=== PATIENT | female | born 1960 | race Caucasian/White ===

== ENCOUNTER → 2019-08-20 13:35 | Outpatient (BNVA) | payer BC, SELFPAY | PROVIDERS: Family Provider Nurse Practitioner; PCP Nurse Practitioner; Visit Provider Nurse Practitioner | DX: M25.562 Pain in left knee (principal) | CPT/HCPCS: 73562 ==

== ENCOUNTER → 2019-09-22 11:56 | Outpatient (BNVA) | payer BC, SELFPAY | PROVIDERS: Family Provider Nurse Practitioner; PCP Nurse Practitioner; Visit Provider Nurse Practitioner | DX: I10 Essential (primary) hypertension (principal); F41.9 Anxiety disorder, unspecified; E03.9 Hypothyroidism, unspecified | CPT/HCPCS: 81003 ==

== ENCOUNTER → 2019-09-23 08:58 | Outpatient (BNVA) | payer BC, SELFPAY | PROVIDERS: Family Provider Nurse Practitioner; PCP Nurse Practitioner; Visit Provider Nurse Practitioner | DX: I10 Essential (primary) hypertension (principal); F41.9 Anxiety disorder, unspecified; E03.9 Hypothyroidism, unspecified | CPT/HCPCS: 80053; 80061; 84443; 85025 ==

== ENCOUNTER → 2019-11-06 08:41 | Outpatient (BNVA) | payer BC, SELFPAY | PROVIDERS: Family Provider Nurse Practitioner; PCP Nurse Practitioner; Visit Provider Nurse Practitioner | DX: R73.9 Hyperglycemia, unspecified (principal) | CPT/HCPCS: 83036 ==

== ENCOUNTER → 2019-11-28 10:37 | Outpatient (BNVA) | payer BC, SELFPAY | PROVIDERS: Family Provider Nurse Practitioner; PCP Nurse Practitioner; Visit Provider Nurse Practitioner | DX: N39.0 Urinary tract infection, site not specified (principal) | CPT/HCPCS: 81000 ==

== ENCOUNTER → 2019-12-29 15:54 | Outpatient (BNVA) | payer BC, SELFPAY | PROVIDERS: Family Provider Nurse Practitioner; PCP Nurse Practitioner; Visit Provider Nurse Practitioner | DX: Z11.59 Encounter for screening for other viral diseases (principal) | CPT/HCPCS: 87635 ==

== ENCOUNTER → 2020-01-18 14:27 | Outpatient (BNVA) | payer BC, SELFPAY | PROVIDERS: Family Provider Nurse Practitioner; PCP Nurse Practitioner; Visit Provider Nurse Practitioner | DX: E03.8 Other specified hypothyroidism (principal); K27.9 Peptic ulcer, site unspecified, unspecified as acute or chronic, without hemorrhage or perforation; I10 Essential (primary) hypertension; F41.9 Anxiety disorder, unspecified | CPT/HCPCS: 80053; 82150; 83690; 84443; 85025 ==

== ENCOUNTER → 2020-04-25 15:06 | Outpatient (BNVA) | payer OTHER, SELFPAY | PROVIDERS: Family Provider Nurse Practitioner; PCP Nurse Practitioner; Visit Provider Nurse Practitioner | DX: E03.8 Other specified hypothyroidism (principal); E55.9 Vitamin D deficiency, unspecified; I10 Essential (primary) hypertension; F41.9 Anxiety disorder, unspecified | CPT/HCPCS: 80053; 82306; 84443; 85025 ==

== ENCOUNTER → 2020-06-23 14:26 | Outpatient (BNVA) | payer OTHER, SELFPAY | PROVIDERS: Family Provider Nurse Practitioner; PCP Nurse Practitioner; Visit Provider Nurse Practitioner Family | DX: R11.2 Nausea with vomiting, unspecified (principal); R19.7 Diarrhea, unspecified | CPT/HCPCS: 74018; 80053; 85025 ==

== ENCOUNTER → 2020-07-28 08:16 | Outpatient (BNVA) | payer OTHER, SELFPAY | PROVIDERS: Family Provider Nurse Practitioner; PCP Nurse Practitioner; Visit Provider Surgery | DX: K62.5 Hemorrhage of anus and rectum (principal); R10.13 Epigastric pain; Z20.822 Contact with and (suspected) exposure to COVID-19 | CPT/HCPCS: 87635 ==

== ENCOUNTER 2020-08-03 07:52 | Day surgery (SDC) | payer OTHER, SELFPAY ==
[2020-08-01 10:19] VITALS: BMI 29.5
[2020-08-03 08:21] VITALS: BP 101/85; PULSE 72; RESP 18; TEMP 36.4; O2SAT 98
--- NOTE | 2020-08-03 08:50 | W.PM.OPSUD ---
Surgery/Procedure H&P Update DATE OF PROCEDURE: August 03, 2020 DATE H&P PERFORMED: 07/04/20 H&P UPDATE INFORMATION: I have reviewed H&P completed within last 30 days, I have examined patient prior to procedure and No changes to prior documentation PREOP DIAGNOSIS: Epigastric pain and bleeding per rectum PRIMARY INDICATION FOR PROCEDURE: The same PLANNED PROCEDURE: Operation Date: 08/03/20 09:30 Proposed Procedures p EGD [id number] k62.5 k27.9 r10.13(Not Applicable) - Alfred Dc MD s Colonoscopy(Not Applicable) - Alfred Dc MD
--- NOTE | 2020-08-03 09:04 | ANES.PREANE2 ---
Pre-Anesthetic Assessment Pre-Anesthetic Assessment: Height/Weight: Height 1.68 m Weight 83.007 kg Temp Pulse Resp BP Pulse Ox 97.5 F L 72 18 101/85 98 08/03/20 08:21 08/03/20 08:21 08/03/20 08:21 08/03/20 08:21 08/03/20 08:21 Preop Diagnosis: Epigastric pain and bleeding per rectum Proposed Procedure: Operation Date: 08/03/20 09:30 Proposed Procedures p EGD [id number] k62.5 k27.9 r10.13(Not Applicable) - Alfred cD MD s Colonoscopy(Not Applicable) - Alfred Dc MD Familial anesthetic complications: none Was Clonidine taken within 24 hours: Yes Last intake: Intake Last Liquid Date 08/02/20 Last Liquid Time 23:30 Last Solid Date 08/01/20 Last Solid Time 18:00 Social: Social History: No alcohol and No tobacco Exam: Pre-Anes Outpt Exam: alert, oriented x 3, clear to auscultation bilaterally and regular rate & rhythm Airway: Submandibular: WNL Cervical ROM: WNL MP: 2 Dentition: Full Pulmonary: Pulmonary: Sleep apnea Comments: bronchitis CV/HEM: CV/HEM: HTN : : None reported Hepatic: Hepatic: None reported GI: GI: GERD (controlled) Metabolic: Metabolic: Thyroid Musc/skel: Musc/skel: None reported Neuropsych: Neuropsych: Anxiety Anesthetic Plan: ASA status: 2 Anesthesia: MAC Risk of > 500 ml blood loss (7ml/kg in children): No PFSH Anesthesia PFSH: Medical History Adult onset hypothyroidism Anxiety and depression Gastritis GERD (gastroesophageal reflux disease) Gingivitis Irritable bowel syndrome with diarrhea Surgical History History of colonoscopy with polypectomy History of hysterectomy History of left knee surgery Left patella alignment Family History Other Diabetes Hypertension Denies family history of Bleeding disorder Social History Smoking and tobacco status: former smoker Second hand smoke exposure: No Smoking risk assessment/counseling performed?: No Alcohol intake: never Desire information about alcohol rehabilitation?: No Counseling given: No Desire information about substance/drug rehabilitation?: No Counseling given: No Adopted: No Caregiver/support person: No Lives independently: Yes Household members: spouse and children Housing: House Marital status: service: No Current occupational status: unemployed History of recent travel: No Current gender identity: Female Data Anesthesia Cardiac Studies: No Data to Display
[2020-08-03] MEDS: sodium chloride 0.9% 1,000 ML 30 ML IV (09:30)
--- NOTE | 2020-08-03 09:40 | ANE.PACU2 ---
Inpatient post-anesthesia follow up: Airway intact: Yes Vital signs: Temperature 97.5 F Pulse Rate 72 Respiratory Rate 18 Blood Pressure 101/85 Pulse Oximetry 98 Oxygen Delivery Me thod Room Air Oxygen Flow Rate Fraction of Inspir ed Oxygen Hydration adequate: Yes Nausea and vomiting: No Pain level: 1 Mental status: Baseline
[2020-08-03 10:00] VITALS: BP 111/69; PULSE 66; RESP 18; O2SAT 97
[2020-08-04 10:34] LABS: H. Pylori / CLO Test Negative
== END 2020-08-03 10:16 | disposition home or self-care (01) ==
PROVIDERS: PCP Nurse Practitioner; Visit Provider Surgery
PROC: 0DJ08ZZ Inspection of Upper Intestinal Tract, Via Natural or Artificial Opening Endoscopic (ICD-10-PCS; CPT 43235; principal; 2020-08-03 09:30)
PROC: 0DJD8ZZ Inspection of Lower Intestinal Tract, Via Natural or Artificial Opening Endoscopic (ICD-10-PCS; CPT 45378; 2020-08-03 09:30)
DX: K62.5 Hemorrhage of anus and rectum (principal); R10.13 Epigastric pain; D12.2 Benign neoplasm of ascending colon; K44.9 Diaphragmatic hernia without obstruction or gangrene; K29.70 Gastritis, unspecified, without bleeding; K29.80 Duodenitis without bleeding; I10 Essential (primary) hypertension; G47.30 Sleep apnea, unspecified; K21.9 Gastro-esophageal reflux disease without esophagitis; F41.9 Anxiety disorder, unspecified; Z82.49 Family history of ischemic heart disease and other diseases of the circulatory system; Z83.3 Family history of diabetes mellitus; Z87.891 Personal history of nicotine dependence
CPT/HCPCS: 43239; 45380; 87077; 88305; 96360; J2704; J7030

== ENCOUNTER → 2020-09-22 15:53 | Outpatient (BNVA) | payer OTHER, SELFPAY | PROVIDERS: PCP Nurse Practitioner; Visit Provider Nurse Practitioner | DX: R07.89 Other chest pain (principal); R53.83 Other fatigue; E55.9 Vitamin D deficiency, unspecified; I10 Essential (primary) hypertension; F41.9 Anxiety disorder, unspecified; M79.18 Myalgia, other site; F32.9 Major depressive disorder, single episode, unspecified; E03.8 Other specified hypothyroidism | CPT/HCPCS: 71046; 82306; 82607; 84443; 85025 ==

== ENCOUNTER → 2020-11-14 11:05 | Outpatient (BNVA) | payer OTHER, SELFPAY | PROVIDERS: PCP Nurse Practitioner; Visit Provider Nurse Practitioner Family | DX: Z20.822 Contact with and (suspected) exposure to COVID-19 (principal) | CPT/HCPCS: 87635 ==

== ENCOUNTER 2020-11-16 10:56 | Outpatient (CLI) | payer OTHER, SELFPAY ==
[2020-11-16 11:25] VITALS: BP 103/68; PULSE 77; RESP 24; TEMP 37.2; O2SAT 95; BMI 28.8
[2020-11-16 11:50] VITALS: BP 120/73; BP 129/77; PULSE 65; PULSE 74; RESP 24; TEMP 37.9; TEMP 38.2; O2SAT 95; O2SAT 96
== END 2020-11-16 10:57 | disposition home or self-care (01) ==
PROVIDERS: PCP Nurse Practitioner; Visit Provider Nurse Practitioner Family
DX: U07.1 COVID-19 (principal)
CPT/HCPCS: 96365

== ENCOUNTER → 2020-12-09 09:13 | Outpatient (BNVA) | payer OTHER, SELFPAY | PROVIDERS: PCP Nurse Practitioner; Visit Provider Nurse Practitioner Family | DX: L21.9 Seborrheic dermatitis, unspecified (principal); B37.2 Candidiasis of skin and nail | CPT/HCPCS: 80053 ==

== ENCOUNTER → 2021-01-24 15:45 | Outpatient (BNVA) | payer OTHER, SELFPAY | PROVIDERS: PCP Nurse Practitioner; Visit Provider Nurse Practitioner | DX: L03.90 Cellulitis, unspecified (principal); N61.0 Mastitis without abscess | CPT/HCPCS: 85025 ==

== ENCOUNTER 2021-02-09 12:26 | Outpatient (CLI) | payer OTHER, SELFPAY ==
--- NOTE | 2021-02-09 13:00 | MM_ITS ---
WS: [id number] BILATERAL DIGITAL DIAGNOSTIC MAMMOGRAM MAMMOGRAPHY WITH CAD CLINICAL INFORMATION: SWELLING/PAIN/REDNESS LT BREAST COMPARISON: TECHNIQUE: Bilateral CC, MLO, and ML views. FINDINGS: Scattered fibroglandular densities bilaterally. Vascular calcification. No suspicious focal mass, asymmetry, calcifications, or architectural distortion. Breast parenchyma i s unchanged since 2017. Ultrasound left breast is pending. ULTRASOUND BREAST LEFT TECHNIQUE: Ultrasound left breast focused area of concern. CLINICAL INFORMATION: SWELLING/PAIN/REDNESS LT BREAST COMPARISON: None. FINDINGS: Ultrasound left breast at the 6:00 and 7:00 position in the area of cellulitis. No evidence of draina ble abscess or fluid collection. Ultrasound left axilla in the area of pain. In the area of pain, there are a few normal-appearing lym ph nodes in the left axilla largest measuring 1.3 x 0.7 x 1.4 cm. No other suspicious abnormality se en in this area. Additional ultrasound at the 1:00 position in the area of concern near the nipple demonstrates a subc utaneous well-circumscribed echogenic lesion measuring 1.1 x 0.6 x 1.0 cm most consistent with incide ntal lipoma. This has a benign appearance. MM/[place] [id number] IMPRESSION: BI-RADS: 2-Benign FOLLOW UP: 1 Year Follow-up Recommend return to annual screening mammography.
--- NOTE | 2021-02-09 13:54 | US_ITS ---
WS: [id number] BILATERAL DIGITAL DIAGNOSTIC MAMMOGRAM MAMMOGRAPHY WITH CAD CLINICAL INFORMATION: SWELLING/PAIN/REDNESS LT BREAST COMPARISON: TECHNIQUE: Bilateral CC, MLO, and ML views. FINDINGS: Scattered fibroglandular densities bilaterally. Vascular calcification. No suspicious focal mass, asymmetry, calcifications, or architectural distortion. Breast parenchyma i s unchanged since 2017. Ultrasound left breast is pending. ULTRASOUND BREAST LEFT TECHNIQUE: Ultrasound left breast focused area of concern. CLINICAL INFORMATION: SWELLING/PAIN/REDNESS LT BREAST COMPARISON: None. FINDINGS: Ultrasound left breast at the 6:00 and 7:00 position in the area of cellulitis. No evidence of draina ble abscess or fluid collection. Ultrasound left axilla in the area of pain. In the area of pain, there are a few normal-appearing lym ph nodes in the left axilla largest measuring 1.3 x 0.7 x 1.4 cm. No other suspicious abnormality se en in this area. Additional ultrasound at the 1:00 position in the area of concern near the nipple demonstrates a subc utaneous well-circumscribed echogenic lesion measuring 1.1 x 0.6 x 1.0 cm most consistent with incide ntal lipoma. This has a benign appearance. US/US breast LT limited* [id number] IMPRESSION: BI-RADS: 2-Benign FOLLOW UP: 1 Year Follow-up Recommend return to annual screening mammography.
== END 2021-02-09 12:27 | disposition home or self-care (01) ==
LOC: RADSHAW 12:30
PROVIDERS: PCP Nurse Practitioner; Visit Provider Nurse Practitioner
DX: M79.89 Other specified soft tissue disorders (principal); N64.4 Mastodynia; L53.9 Erythematous condition, unspecified
CPT/HCPCS: 76642; 77066; 77067

== ENCOUNTER → 2021-05-09 08:57 | Outpatient (BNVA) | payer OTHER, SELFPAY | PROVIDERS: PCP Nurse Practitioner; Visit Provider Nurse Practitioner | DX: E03.8 Other specified hypothyroidism (principal); I10 Essential (primary) hypertension | CPT/HCPCS: 80053; 80061; 84443; 85025 ==

== ENCOUNTER → 2021-07-04 15:09 | Outpatient (BNVA) | payer OTHER, SELFPAY | PROVIDERS: PCP Nurse Practitioner; Visit Provider Nurse Practitioner | DX: R05.9 Cough, unspecified (principal); K44.9 Diaphragmatic hernia without obstruction or gangrene | CPT/HCPCS: 71046; 81000; 85025 ==

== ENCOUNTER 2021-09-08 06:00 | Outpatient (RCR) | payer OTHER, SELFPAY | END 2021-09-21 23:59 | disposition home or self-care (01) | LOC: APT 06:00 | PROVIDERS: PCP Nurse Practitioner; Referring Provider Orthopaedic Surgery; Visit Provider Orthopaedic Surgery | DX: M22.2X2 Patellofemoral disorders, left knee (principal) | CPT/HCPCS: 97110; 97163 ==

== ENCOUNTER 2021-09-22 06:00 | Outpatient (RCR) | payer OTHER, SELFPAY | END 2021-10-22 23:59 | disposition home or self-care (01) | LOC: APT 06:00 | PROVIDERS: PCP Nurse Practitioner; Referring Provider Orthopaedic Surgery; Visit Provider Orthopaedic Surgery | DX: M22.2X2 Patellofemoral disorders, left knee (principal) | CPT/HCPCS: 97110 ==

== ENCOUNTER → 2021-10-24 09:36 | Outpatient (BNVA) | payer OTHER, SELFPAY | PROVIDERS: PCP Nurse Practitioner; Visit Provider Nurse Practitioner | DX: E03.8 Other specified hypothyroidism (principal); I10 Essential (primary) hypertension; E11.65 Type 2 diabetes mellitus with hyperglycemia | CPT/HCPCS: 80053; 80061; 84443; 85025 ==

== ENCOUNTER → 2022-04-05 10:50 | Outpatient (BNVA) | payer OTHER, SELFPAY | PROVIDERS: PCP Nurse Practitioner; Visit Provider Family Medicine | DX: R35.0 Frequency of micturition (principal); R52 Pain, unspecified; N39.0 Urinary tract infection, site not specified | CPT/HCPCS: 87426 ==

== ENCOUNTER → 2022-04-12 10:11 | Outpatient (BNVA) | payer OTHER, SELFPAY | PROVIDERS: PCP Nurse Practitioner; Visit Provider Nurse Practitioner Family | DX: N39.0 Urinary tract infection, site not specified (principal); E03.8 Other specified hypothyroidism; I10 Essential (primary) hypertension; K21.9 Gastro-esophageal reflux disease without esophagitis; K92.0 Hematemesis; K27.9 Peptic ulcer, site unspecified, unspecified as acute or chronic, without hemorrhage or perforation | CPT/HCPCS: 80048; 81000; 84443; 85025; 87086 ==

== ENCOUNTER → 2022-06-26 08:48 | Outpatient (BNVA) | payer OTHER, SELFPAY | PROVIDERS: PCP Nurse Practitioner; Visit Provider Nurse Practitioner | DX: E03.8 Other specified hypothyroidism (principal); E55.9 Vitamin D deficiency, unspecified | CPT/HCPCS: 80053; 80061; 84443 ==

== ENCOUNTER → 2022-07-30 12:55 | Outpatient (BNVA) | payer OTHER, SELFPAY | PROVIDERS: PCP Nurse Practitioner; Visit Provider Nurse Practitioner | DX: E03.8 Other specified hypothyroidism (principal) | CPT/HCPCS: 84443 ==

== ENCOUNTER → 2022-08-16 15:18 | Outpatient (BNVA) | payer OTHER, SELFPAY | PROVIDERS: PCP Nurse Practitioner; Visit Provider Nurse Practitioner Family | DX: R50.9 Fever, unspecified (principal); J22 Unspecified acute lower respiratory infection | CPT/HCPCS: 87426 ==

== ENCOUNTER → 2022-10-08 10:11 | Outpatient (BNVA) | payer OTHER, SELFPAY | PROVIDERS: PCP Nurse Practitioner; Visit Provider Nurse Practitioner Family | DX: B94.8 Sequelae of other specified infectious and parasitic diseases (principal); M79.10 Myalgia, unspecified site; R52 Pain, unspecified | CPT/HCPCS: 80053; 85025; 85651; 86003; 86008; 86140; 86160; 86162; 86235; 86255; 86376; 86431; 86618; 86666; 86757 ==

== ENCOUNTER → 2022-10-26 08:23 | Outpatient (BNVA) | payer OTHER, SELFPAY | PROVIDERS: PCP Nurse Practitioner; Visit Provider Nurse Practitioner | DX: E55.9 Vitamin D deficiency, unspecified (principal); E03.8 Other specified hypothyroidism; R73.9 Hyperglycemia, unspecified; I10 Essential (primary) hypertension | CPT/HCPCS: 82306; 82607; 83036; 84439; 84443; 84481 ==

== ENCOUNTER → 2022-12-08 14:43 | Outpatient (BNVA) | payer OTHER, SELFPAY | PROVIDERS: PCP Nurse Practitioner; Visit Provider Nurse Practitioner Family | DX: N39.0 Urinary tract infection, site not specified (principal) | CPT/HCPCS: 81000 ==

== ENCOUNTER 2023-01-02 18:21 | Emergency (ER) | payer OTHER, SELFPAY ==
[2023-01-02 18:43] VITALS: BP 119/81; PULSE 65; RESP 18; TEMP 36.8; O2SAT 98; BMI 29.0
[2023-01-02 19:35] LABS: Basophils % 0.5 %; Eosinophils # 0.1 10^3/uL (0.0-0.8); Hematocrit 47.5 % (36-47); Lymphocytes # 1.1 10^3/uL (0.8-4.8); Lymphocytes % 15.8 %; Mean Corpuscular HGB Conc 28.6 g/dL (30-55); Mean Corpuscular Hemoglobin 28.2 pg (27-33); Mean Corpuscular Volume 98.3 fl (85-98); Mean Platelet Volume 11.6 fL (7.4-10.4); Monocytes # 0.4 10^3/uL (0.2-0.9); Monocytes % 5.3 %; Neutrophils # 5.05 10^3/uL (1.8-7.7); Neutrophils % 75.6 %; Nucleated Red Blood Cells % 0 %; Platelet Count 204 10^3/cmm (157-399); Red Blood Count 4.83 10^6/uL (3.85-5.65); Red Cell Distribution Width 14.3 % (12.1-15.1); White Blood Count 6.66 10^3/uL (3.29-11.43)
--- NOTE | 2023-01-02 19:41 | ECG_ITS ---
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 Measurements Intervals [place] Rate: 52 P: 30 GA: 156 QRS: -8 QRSD: 94 T: 41 QT: 450 QTc: 419 Interpretive Statements SINUS BRADYCARDIA Compared to ECG 10/18/2017 04:32:54 T-wave abnormality no longer present Electronically Signed On 01-03-2023 21:30:41 CDT by Aileen Colin M.D. [email or web address] [email or web address] medina [email or web address]/store/[id number]
[2023-01-02 19:56] LABS: Troponin(5th) Baseline 7 ng/L (0-10)
[2023-01-02 19:57] LABS: Alanine Aminotransferase 13 U/L (0-33); Albumin Level 4.2 g/dL (3.5-5.2); Alkaline Phosphatase 69 U/L (35-105); Anion Gap 13.4 (5-19); Aspartate Amino Transferase 15 U/L (0-32); Blood Urea Nitrogen 14 mg/dL (8-23); Calcium 8.9 mg/dL (8.5-10.5); Carbon Dioxide 26 mmol/L (22-29); Chloride 102 mmol/L (98-107); Globulin 2.4 g/dL (1.3-4.6); Glucose 109 mg/dL (65-115); Osmolality Calculated 285 mOsm/kg (285-295); Potassium 4.4 mmol/L (3.5-5.1); Sodium 137 mmol/L (136-145); Total Bilirubin 0.5 mg/dL (0.15-1.2); Total Protein 6.6 g/dL (6.6-8.7)
--- NOTE | 2023-01-02 20:28 | CTR_ITS ---
PROCEDURE INFORMATION: Exam: CT Head Without Contrast Exam date and time: 01/02/2023 8:35 PM Age: 62 years old Clinical indication: Other: Pain to right side of head; Patient HX: PT says she was recently dx w/ shingles and has started having headaches on and off accompanied by dizziness, pain is always to right side of head; Additional info: Headache, dizziness TECHNIQUE: Imaging protocol: Computed tomography of the head without contrast. Radiation optimization: All CT scans at this facility use at least one of these dose optimization techniques: automated exposure control; mA and/or kV adjustment per patient size (includes targeted exams where dose is matched to clinical indication); or iterative reconstruction. REPORTING DATA: Count of CT and Cardiac NM exams in prior 12 months: This patient has received 0 known CTs and 0 known cardiac nuclear medicine studies in the 12 months prior to the current study. COMPARISON: No relevant prior studies available. RADIATION DOSE METRICS: Total DLP (mGy-cm): 1016.38 FINDINGS: Brain: Normal. No hemorrhage. Unremarkable white matter. No mass effect. Cerebral ventricles: No ventriculomegaly. Paranasal sinuses: Visualized sinuses are unremarkable. No fluid levels. Mastoid air cells: Visualized mastoid air cells are well aerated. Bones/joints: Unremarkable. No acute fracture. Soft tissues: Unremarkable. CT/CT head wo con* [id number] IMPRESSION: No acute intracranial abnormality.
--- NOTE | 2023-01-02 21:03 | W.ED.DIZZY ---
HPI - Dizziness General: Chief Complaint: Dizziness Stated Complaint: dizzy Time Seen by Provider: 01/02/23 20:21 History of Present Illness: HPI Narrative: 62-year-old female presents with dizziness and headache. She reports that headaches been going on for a while along with the dizziness. She has been seen by urgent care and her primary care provider. She was recently diagnosed with shingles. She reports the dizziness gets worse with head movement. She was told she has a little bit of fluid behind her ear. Associated symptoms: Denies chest pain, chills, nausea, palpitations, tinnitus or vomiting Review of Systems Const: Denies: fever(s) or chills Eyes: Denies: change in vision or blurry vision ENMT: Denies: tinnitus Card: Denies: chest pain, palpitations, irregular heart rhythm or lightheadedness Resp: Denies: dyspnea or productive cough GI: Denies: abdominal pain, nausea or vomiting Neuro: Reports: dizziness [facility] ED PFSH: Medical History (Updated 01/02/23 @ 22:01 by Chad Childs DO) Adult onset hypothyroidism Anxiety and depression Bleeding per rectum Bronchospasm Colon polyp Gastritis Gastritis and duodenitis GERD (gastroesophageal reflux disease) Gingivitis Hiatal hernia Irritable bowel syndrome with diarrhea Neuropathy due to herpes zoster Vitamin D deficiency Surgical History History of appendectomy History of cholecystectomy History of colonoscopy with polypectomy History of hysterectomy History of left knee surgery Left patella alignment History of tubal ligation Family History Other Diabetes Hypertension Denies family history of Bleeding disorder Social History Smoking and tobacco/nicotine status: former use of tobacco/nicotine Second hand smoke exposure: No Alcohol intake: never Substance/Drug Use: never Adopted: No Caregiver/support person: No Lives independently: Yes Household members: spouse and children Housing: House Marital status: service: No Current occupational status: unemployed Do you think of yourself as: Straight/Heterosexual Current gender identity: Female Physical Exam Const: COMMON NORMALS: no acute distress, average body habitus and patient oriented x3 HENMT: COMMON NORMALS: external ears normal EXTERNAL EAR: Yes external ears normal TYMPANIC MEMBRANE: TM abnormal TM laterality: right Details: fluid behind TM (mild) Resp: COMMON NORMALS: normal respiratory effort, No use of accessory muscles and clear to auscultation bilaterally AUSCULTATION: clear to auscultation bilaterally Cardio: COMMON NORMALS: regular rate and regular rhythm RATE: regular rate RHYTHM: regular rhythm Extremity: COMMON NORMALS: full ROM and capillary refill normal Neuro: COMMON NORMALS: patient oriented x3, CN's II-XII intact bilaterally, moves all extremities, no focal motor deficits and no sensory deficits noted Psych: COMMON NORMALS: mental status grossly normal and cooperative Skin: COMMON NORMALS: turgor normal GENERAL SKIN EXAM: turgor normal Course Vital Signs: Vital signs: Vital Signs Temperature 98.3 F 01/02/23 18:43 Pulse Rate 48 L 01/02/23 21:42 Respiratory Rate 21 H 01/02/23 21:42 Blood Pressure 164/54 01/02/23 21:42 Pulse Oximetry 95 01/02/23 21:42 Oxygen Delivery Me thod Room Air 01/02/23 21:42 MDM - Dizziness Medical Decision Making Patient's diagnostic studies were ordered reviewed and interpreted by me. Patient has no significant findings on her labs. Patient's CT head was obtained and reviewed shows no acute findings. Patient had 2 EKGs that showed sinus bradycardia but otherwise normal EKG. Patient does not complain of any dizziness or headache at this time but reports that this comes and goes. Patient's symptoms are consistent with benign positional vertigo versus possible headache due to her shingles diagnosis. She should continue her current medications. I recommend she try meclizine as needed. Patient was stable and discharged home Medical Records I reviewed the patient's medical records. Lab Data I reviewed the patient's lab results. 01/02/23 19:28 01/02/23 19:[address] 01/02/23 20:28 IMPRESSION: No acute intracranial abnormality. Laboratory Results WBC 6.66 10^3/uL (3.29-11.43) 01/02/23 19:28 RBC 4.83 10^6/uL (3.85-5.65) 01/02/23 19:28 Hgb 13.60 g/dL (11.27-16.99) 01/02/23 19: Hct 47.5 % (36-47) H 01/02/23: MCV 98.3 fl (85-98) H 01/02/23 19: MCH 28.2 pg (27-33) 01/02/23 19: MCHC 28.6 g/dL (30-55) L 01/02/23: RDW 14.3 % (12.1-15.1) 01/02/23: Plt Count 204 10^3/cmm (157-399) 01/02/23 19: MPV 11.6 fL (7.4-10.4) H 01/02/23: Neut % (Auto) 75.6 % 01/02/23: Lymph % (Auto) 15.8 % 01/02/23: Millard % (Auto) 5.3 % 01/02/23: Eos % (Auto) 2.0 % 01/02/23: Baso % (Auto) 0.5 % 01/02/23: Neut # (Auto) 5.05 10^3/uL (1.8-7.7) 01/02/23: Lymph # (Auto) 1.1 10^3/uL (0.8-4.8) 01/02/23: Millard # (Auto) 0.4 10^3/uL (0.2-0.9) 01/02/23: Eos # (Auto) 0.1 10^3/uL (0.0-0.8) 01/02/23: Baso # (Auto) 0.0 10^3/uL (0.0-0.1) 01/02/23: Nucleated RBC % (auto) 0 % 01/02/23: Nucleated RBCs # 0.0 /100WBC 01/02/23 19: Sodium 137 mmol/L (136-145) 01/02/23 19: Potassium 4.4 mmol/L (3.5-5.1) 01/02/23 19: Chloride 102 mmol/L (98-107) 01/02/23 19: Carbon Dioxide 26 mmol/L (22-29) 01/02/23 19:28 Anion Gap 13.4 (5-19) 01/02/23 19:28 BUN 14 mg/dL (8-23) 01/02/23 19:28 Creatinine 1.0 mg/dL (0.5-0.9) H 01/02/23 19:28 GFR Calculation 56.0 mL/min (90-130) L 01/02/23 19:28 Glucose 109 mg/dL (65-115) 01/02/23 19:28 Calculated Osmolality 285 mOsm/kg (285-295) 01/02/23 19:28 Calcium 8.9 mg/dL (8.5-10.5) 01/02/23 19:28 Total Bilirubin 0.5 mg/dL (0.15-1.2) 01/02/23 19:28 AST 15 U/L (0-32) 01/02/23 19:28 ALT 13 U/L (0-33) 01/02/23 19:28 Alkaline Phosphatase 69 U/L (35-105) 01/02/23 19:28 Troponin T Baseline 7 ng/L (0-10) 01/02/23 19:28 Total Protein 6.6 g/dL (6.6-8.7) 01/02/23 19:28 Albumin 4.2 g/dL (3.5-5.2) 01/02/23 19:28 Globulin 2.4 g/dL (1.3-4.6) 01/02/23 19:28 All radiology interpretation(s) finalized by discharge Discharge Plan Discharge Patient Disposition: Home Clinical Impression: Benign paroxysmal positional vertigo Condition: Stable Prescriptions: No Action acetaminophen 325 mg capsule 325 mg PO ONCE Qty: 1 0RF melatonin 5 mg capsule 5 mg PO BEDTIME triamcinolone acetonide 0.1 % lotion 1 applic topical BID Qty: 60 0RF Hold Instructions: Doctor's Order calcipotriene [Dovonex] 0.005 % cream 1 applic topical DAILY Qty: 60 0RF Rx Instructions: rub in gently and completely duloxetine [Cymbalta] 60 mg capsule,delayed release(DR/EC) 60 mg PO BID Qty: 60 2RF albuterol sulfate [ProAir HFA] 90 mcg/actuation HFA aerosol inhaler 2 puff inhalation Q6H PRN (Reason: shortness of breath or wheezing) Qty: 8.5 2RF amlodipine [Norvasc] 5 mg tablet 5 mg PO DAILY Qty: 30 2RF budesonide-formoterol [Symbicort] 160-4.5 mcg/actuation HFA aerosol inhaler 2 puff inhalation BID Qty: 10.2 2RF cholecalciferol (vitamin D3) 125 mcg (5,000 unit) capsule 125 mcg PO DAILY Qty: 30 2RF cyanocobalamin (vitamin B-12) 1,000 mcg/mL solution 1,000 mcg IM .one time dose Qty: 1 2RF hydroxyzine pamoate 25 mg capsule 25 mg PO BID PRN (Reason: anxiety) Qty: 60 2RF levothyroxine 50 mcg tablet 50 mcg PO DAILY Qty: 30 2RF lisinopril 40 mg tablet 40 mg PO DAILY Qty: 30 2RF pantoprazole [Protonix] 40 mg tablet,delayed release (DR/EC) 40 mg PO DAILY Qty: 30 2RF diclofenac sodium [Voltaren Arthritis Pain] 1 % gel 2 g topical TID Qty: 100 2RF Rx Instructions: apply to right side clonidine HCl 0.1 mg tablet 0.1 mg PO Q12H Qty: 60 2RF Hold Instructions: Low BP fluticasone propionate [Children's Flonase Allergy Rlf] 50 mcg/actuation spray,suspension 1 spray intranasal BID Qty: 16 0RF Rx Instructions: administer into each nostril nystatin 100,000 unit/gram powder 1 applic topical BID Qty: 30 2RF Discharge Orders: Discharge ED (Routine); Ordered 01/02/23 Ordered By: Chad Childs Referrals: Radha Palomares, [employer] [Primary Care Provider] - Discharge Diet: Usual diet Discharge Activity: Increase activity as tolerated Patient Instructions: Opioid Safety, Pain Management, Benign Paroxysmal Positional Vertigo (ED), Vertigo (ED) Activity Restrictions/Additional Instructions: Please follow-up with your primary care provider as needed. You may use meclizine 25 mg 3 times daily as directed on package. Be sure to drink plenty of fluids. Stand Alone Forms: Work/School Release Coding Level of Care Code ED Software Quality Specialist for Adan Mckeon
--- NOTE | 2023-01-02 21:14 | ECG_ITS ---
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 Measurements Intervals [place] Rate: 49 P: 39 WV: 155 QRS: -4 QRSD: 94 T: 35 QT: 466 QTc: 424 Interpretive Statements SINUS BRADYCARDIA Compared to ECG 01/02/2023 19:41:08 No significant changes Electronically Signed On 01-03-2023 21:37:06 CDT by Aileen Colin M.D. [email or web address] Squaremercy health all[email or web address].[email or web address]/store/[id number]
[2023-01-02] MEDS: meclizine 25 mg tablet PO (21:24)
[2023-01-02] MEDS: sodium chloride 0.9% 1,000 ML 999 ML IV (21:25)
[2023-01-02 21:42] VITALS: BP 164/54; PULSE 48; RESP 21; O2SAT 95
[2023-01-02 21:53] LABS: Add Urine Microscopic? NO; Charge for UA Resulting for Rev
[2023-01-02 22:00] VITALS: BP 173/72; PULSE 50; RESP 22; O2SAT 93
[2023-01-02 22:02] LABS: Bilirubin Urine Neg (Negative); Blood Urine Neg (Negative); Glucose Urine UA Norm (Normal); Ketones Urine Negative (Negative); Leukocyte Esterase Urine Negative (Negative); Nitrate Urine Negative (Negative); Protein Urine Neg (Negative); Urine Appearance Clear (CLEAR); Urine Color Yellow (Yellow); Urobilinogen Urine Norm (Negative); pH Urine 6 (5-7)
[2023-01-02 22:30] VITALS: BP 161/68; PULSE 49; RESP 22; O2SAT 97
== END 2023-01-02 22:41 | disposition home or self-care (01) ==
PROVIDERS: Nurse Practitioner Family; Emergency Provider Student in an Organized Health Care Education/Training Program; PCP Nurse Practitioner
DX: H81.10 Benign paroxysmal vertigo, unspecified ear (principal); Z87.891 Personal history of nicotine dependence
CPT/HCPCS: 36415; 70450; 80053; 81003; 84484; 85025; 93005; 99285; J7030; J8597

== ENCOUNTER → 2023-02-25 09:49 | Outpatient (BNVA) | payer OTHER, SELFPAY | PROVIDERS: PCP Nurse Practitioner; Visit Provider Nurse Practitioner | DX: E53.8 Deficiency of other specified B group vitamins (principal); E55.9 Vitamin D deficiency, unspecified; I10 Essential (primary) hypertension | CPT/HCPCS: 80053; 82306; 82607; 84443 ==

== ENCOUNTER → 2023-03-26 11:03 | Outpatient (BNVA) | payer OTHER, SELFPAY | PROVIDERS: PCP Nurse Practitioner; Visit Provider Nurse Practitioner | DX: R05.9 Cough, unspecified (principal); R50.9 Fever, unspecified; I10 Essential (primary) hypertension | CPT/HCPCS: 80053; 85025; 87400; 87426 ==

== ENCOUNTER 2023-04-02 13:43 | Outpatient (CLI) | payer OTHER, SELFPAY ==
--- NOTE | 2023-04-02 14:00 | MM_ITS ---
WS: [id number] BILATERAL 3D TOMOSYNTHESIS DIGITAL SCREENING MAMMOGRAPHY WITH CAD CLINICAL INFORMATION: Z12.31 - Encounter for screening mammogram for malignant ... HISTORY: Screening mammogram. No current complaints. COMPARISON: 2020 TECHNIQUE: Bilateral CC and MLO views. FINDINGS: Scattered fibroglandular densities bilaterally. Vascular calcification. 8 mm asymmetric density near the 12 o'clock position RIGHT breast more prominent compared to previous breast seen on the MLO view. Recommend RIGHT breast diagnostic mammography and ultrasound if persistent. Unremarkable LEFT breast. IMPRESSION: MM/[place] [id number] BI-RADS: 0-Incomplete: Need additional imaging evaluation FOLLOW UP: Need Additional Imaging Recommend RIGHT breast diagnostic mammography and ultrasound if persistent..
== END 2023-04-02 13:44 | disposition home or self-care (01) ==
LOC: MOBLMAM 13:46
PROVIDERS: PCP Nurse Practitioner; Visit Provider Nurse Practitioner
DX: Z12.31 Encounter for screening mammogram for malignant neoplasm of breast (principal)
CPT/HCPCS: 77063; 77067

== ENCOUNTER 2023-05-09 08:37 | Outpatient (CLI) | payer OTHER, SELFPAY ==
--- NOTE | 2023-05-09 08:46 | MM_ITS ---
WS: [id number] RIGHT 3D TOMOSYNTHESIS DIGITAL MAMMOGRAPHY WITH CAD CLINICAL INFORMATION: R92.8 - Other abnormal and inconclusive findings on diagn... HISTORY: Additional views COMPARISON: 04/02/2023 TECHNIQUE: 3 views of the right breast were obtained. FINDINGS: Scattered fibroglandular densities of the right breast. Again seen is the small asymmetric density ne ar the 12 o'clock position RIGHT breast. Ultrasound is pending. ULTRASOUND BREAST RIGHT TECHNIQUE: Ultrasound right breast focused area of concern. CLINICAL INFORMATION: R92.8 - Other abnormal and inconclusive findings on diagn... FINDINGS: Ultrasound RIGHT breast 12 o'clock position 5 cm from the nipple demonstrates a small cyst or dilated duct measuring approximately 3 mm. This has a benign appearance. Recommend return to annual screenin g mammography. IMPRESSION: MM/[place] [id number] BI-RADS: 2-Benign FOLLOW UP: 1 Year Follow-up Recommend return to annual screening mammography.
== END 2023-05-09 08:38 | disposition home or self-care (01) ==
LOC: RAD 08:38
PROVIDERS: PCP Nurse Practitioner; Visit Provider Nurse Practitioner
DX: R92.8 Other abnormal and inconclusive findings on diagnostic imaging of breast (principal); R92.321 Mammographic fibroglandular density, right breast
CPT/HCPCS: 76642; 77061; G0279

== ENCOUNTER 2023-05-19 00:52 | Inpatient (IN) | payer OTHER, SELFPAY ==
[2023-05-19] VITALS (244 sets, daily range): BP systolic 115–190; BP diastolic 65–127; PULSE 51–85; RESP 12–31; TEMP 36.4–37.1; O2SAT 87–100; BMI 29.0; BMI 30.7
--- NOTE | 2023-05-19 01:03 | ECG_ITS ---
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 Measurements Intervals [place] Rate: 151 P: 0 PA: 0 QRS: 32 QRSD: 82 T: 14 QT: 261 QTc: 414 Interpretive Statements ATRIAL FLUTTER/TACHYCARDIA WITH RAPID VENTRICULAR RESPONSE MARKED ST DEPRESSION, CONSIDER SUBENDOCARDIAL INJURY [0.2+ mV ST DEPRESSION] ACUTE TX Compared to ECG 01/02/2023 21:14:20 ST (T wave) deviation now present Sinus bradycardia no longer present Electronically Signed On 05-19-2023 20:54:48 INSURANCE COUNSEL by Aileen Colin M.D. [id number] f
--- NOTE | 2023-05-19 01:04 | XRR_ITS ---
PROCEDURE INFORMATION: Exam: XR Chest Exam date and time: 05/19/2023 1:34 AM Age: 62 years old Clinical indication: Chest pressure; Patient HX: C/O left sided chest pain; Additional info: Cp TECHNIQUE: Imaging protocol: Radiologic exam of the chest. Views: 1 view. COMPARISON: CR XR chest 2V* [id number] 07/04/2021 3:10 PM FINDINGS: Lungs: No consolidation or pulmonary edema. Pleural spaces: No pleural effusion. No pneumothorax. Heart/Mediastinum: Stable large hiatal hernia. Bones/joints: No acute fractures. XR/XR chest 1V portable [id number] IMPRESSION: 1. No acute findings. 2. Stable large hiatal hernia.
--- NOTE | 2023-05-19 01:04 | CTR_ITS ---
PROCEDURE INFORMATION: Exam: CT Head Without Contrast Exam date and time: 05/19/2023 1:24 AM Age: 62 years old Clinical indication: Stroke-like symptoms; Speech disturbance; Additional info: Symptoms of acute stroke TECHNIQUE: Imaging protocol: Computed tomography of the head without contrast. Radiation optimization: All CT scans at this facility use at least one of these dose optimization techniques: automated exposure control; mA and/or kV adjustment per patient size (includes targeted exams where dose is matched to clinical indication); or iterative reconstruction. Other technique: STROKE PROTOCOL was implemented. COMPARISON: CT head wo con* [id number] 01/02/2023 8:35 PM RADIATION DOSE METRICS: Total DLP (mGy-cm): 1019.48 FINDINGS: Brain: No acute intracranial hemorrhage. No mass effect or midline shift. No acute extraaxial fluid collection. Unremarkable white matter. Cerebral ventricles: No ventriculomegaly. Paranasal sinuses: Partially visualized sinuses are unremarkable. No fluid levels. Mastoid air cells: Visualized mastoid air cells are well aerated. Bones/joints: Unremarkable. No acute calvarial fracture. Soft tissues: Unremarkable. CT/CT head thrombolytic [id number] IMPRESSION: No acute intracranial findings. ASSESSMENT: ASPECTS ([place] Stroke Program Early CT Score) is 10.
--- NOTE | 2023-05-19 01:04 | CTR_ITS ---
PROCEDURE INFORMATION: Exam: CTA Head With Contrast, Arteriography Exam date and time: 05/19/2023 2:42 AM Age: 62 years old Clinical indication: Speech disturbance and weakness; Patient HX: Dysphasia/slurred speech with left upper ext weakness TECHNIQUE: Imaging protocol: Computed tomographic angiography of the head with contrast. Exam focused on the arteries. 3D rendering (Not supervised by radiologist): MIP and/or 3D reconstructed images were created by the technologist. Radiation optimization: All CT scans at this facility use at least one of these dose optimization techniques: automated exposure control; mA and/or kV adjustment per patient size (includes targeted exams where dose is matched to clinical indication); or iterative reconstruction. Contrast material: OMNI 350; Contrast volume: 100 ml; Contrast route: INTRAVENOUS (IV); COMPARISON: CT head thrombolytic [id number] 05/19/2023 1:24 AM RADIATION DOSE METRICS: Total DLP (mGy-cm): 1019.48 FINDINGS: ANTERIOR CIRCULATION: Right internal carotid artery: Intracranial segment is patent with no significant stenosis. No aneurysm. Right middle cerebral artery: No occlusion or significant stenosis. No aneurysm. Right anterior cerebral artery: No occlusion or significant stenosis. No aneurysm. Left internal carotid artery: Intracranial segment is patent with no significant stenosis. No aneurysm. Left middle cerebral artery: No occlusion or significant stenosis. No aneurysm. Left anterior cerebral artery: No occlusion or significant stenosis. No aneurysm. POSTERIOR CIRCULATION: Right vertebral artery: No occlusion or significant stenosis. No aneurysm. Left vertebral artery: No occlusion or significant stenosis. No aneurysm. Basilar artery: No occlusion or significant stenosis. No aneurysm. Right posterior cerebral artery: No occlusion or significant stenosis. No aneurysm. Left posterior cerebral artery: No occlusion or significant stenosis. No aneurysm. Brain: There is no evidence of acute intracranial hemorrhage, subacute or chronic ischemic infarct, acute intra-axial or extra-axial fluid collection, mass effect, or midline shift. Cerebral ventricles: No ventriculomegaly. Bones/joints: Unremarkable. No acute fracture. Soft tissues: Unremarkable. PROCEDURE INFORMATION: Exam: CTA Neck With Contrast Exam date and time: 05/19/2023 2:42 AM Age: 62 years old Clinical indication: Speech disturbance and weakness; Patient HX: Dysphasia/slurred speech with left upper ext weakness TECHNIQUE: Imaging protocol: Computed tomographic angiography of the neck with contrast. Exam focused on the cervical segments of the vasculature. 3D rendering (Not supervised by radiologist): MIP and/or 3D reconstructed images were created by the technologist. Radiation optimization: All CT scans at this facility use at least one of these dose optimization techniques: automated exposure control; mA and/or kV adjustment per patient size (includes targeted exams where dose is matched to clinical indication); or iterative reconstruction. Contrast material: OMNI 350; Contrast volume: 100 ml; Contrast route: INTRAVENOUS (IV); COMPARISON: CT head thrombolytic [id number] 05/19/2023 1:24 AM RADIATION DOSE METRICS: Total DLP (mGy-cm): 1019.48 FINDINGS: Right common carotid artery: No stenosis. No dissection or occlusion. Right internal carotid artery: No stenosis of the extracranial segment. No dissection or occlusion. Right external carotid artery: No occlusion or stenosis of the origin. Left common carotid artery: No stenosis. No dissection or occlusion. Left internal carotid artery: No stenosis of the extracranial segment. No dissection or occlusion. Left external carotid artery: No occlusion or stenosis of the origin. Right vertebral artery: No stenosis. No dissection or occlusion. Left vertebral artery: No stenosis. No dissection or occlusion. Lymph nodes: Bilateral mediastinal lymphadenopathy. Soft tissues: Normal. No significant soft tissue swelling. Bones/joints: No acute fracture. CT/CT angio headneck* [id number] IMPRESSION: 1. No major intracranial artery aneurysm, obstruction or significant stenosis. 2. No acute intracranial findings. IMPRESSION: 1. No major neck artery stenosis, aneurysm, pseudoaneurysm or occlusion. 2. Bilateral mediastinal lymphadenopathy. Further evaluation with chest CT is recommended. REFERENCES: NASCET CRITERIA. The degree of stenosis in the cervical segment of the internal carotid artery is based on NASCET criteria. Normal is no stenosis. Mild is less than 50% stenosis. Moderate is 50-69% stenosis. Severe is 70% to 99% stenosis. Total occlusion is no detectable patent lumen.
[2023-05-19 01:09] LABS: Glucose Point of Care 146 mg/dL (70-110)
[2023-05-19 01:27] LABS: Basophils # 0.1 10^3/uL (0.0-0.1); Basophils % 0.7 %; Eosinophils # 0.7 10^3/uL (0.0-0.8); Eosinophils % 8.6 %; Hematocrit 40.7 % (36-47); Lymphocytes # 1.5 10^3/uL (0.8-4.8); Lymphocytes % 19.3 %; Mean Corpuscular HGB Conc 32.2 g/dL (30-55); Mean Corpuscular Volume 90.2 fl (85-98); Mean Platelet Volume 10.8 fL (7.4-10.4); Monocytes # 0.6 10^3/uL (0.2-0.9); Monocytes % 7.7 %; Neutrophils # 4.81 10^3/uL (1.8-7.7); Neutrophils % 63.3 %; Nucleated Red Blood Cells % 0 %; Platelet Count 250 10^3/cmm (157-399); Red Blood Count 4.51 10^6/uL (3.85-5.65); Red Cell Distribution Width 13.9 % (12.1-15.1); White Blood Count 7.58 10^3/uL (3.29-11.43)
[2023-05-19 01:40] LABS: INR 0.97 (0.8-1.2); Partial Thromboplastin Time 28.4 SECONDS (23.9-36.7)
[2023-05-19 01:45] LABS: Troponin(5th) Baseline 18 ng/L (0-10)
[2023-05-19 01:46] LABS: Alanine Aminotransferase 28 U/L (0-33); Albumin Level 4.1 g/dL (3.5-5.2); Alkaline Phosphatase 63 U/L (35-105); Blood Urea Nitrogen 17 mg/dL (8-23); Calcium 9.4 mg/dL (8.5-10.5); Carbon Dioxide 23 mmol/L (22-29); Chloride 103 mmol/L (98-107); Globulin 2.4 g/dL (1.3-4.6); Glucose 139 mg/dL (65-115); Osmolality Calculated 290 mOsm/kg (285-295); Sodium 138 mmol/L (136-145); Total Bilirubin 0.2 mg/dL (0.15-1.2); Total Protein 6.5 g/dL (6.6-8.7)
[2023-05-19 01:48] LABS: Anion Gap 16.2 (5-19); Aspartate Amino Transferase 30 U/L (0-32); Potassium 4.2 mmol/L (3.5-5.1)
[2023-05-19 01:49] LABS: Add Urine Microscopic? NO; Charge for UA Resulting for Rev
[2023-05-19 01:51] LABS: Bilirubin Urine Neg (Negative); Blood Urine Neg (Negative); Glucose Urine UA Norm (Normal); Ketones Urine Negative (Negative); Leukocyte Esterase Urine Negative (Negative); Nitrate Urine Negative (Negative); Protein Urine Neg (Negative); Urine Appearance Clear (CLEAR); Urine Color Light yellow (Yellow); Urobilinogen Urine Norm (Negative); pH Urine 7 (5-7)
[2023-05-19] MEDS: tenecteplase 50mg Kit (STROKE) 50 MG (02:00)
[2023-05-19 02:01] LABS: Amphetamines Screen Urine Negative (Negative); Barbiturates Screen Urine Negative (Negative); Benzodiazepines Screen Urine Negative (Negative); Cocaine Screen Urine Negative (Negative); Opiate Screen Urine Negative (Negative); PCP Screen Urine Negative (Negative); THC Screen Urine Negative (Negative)
[2023-05-19] MEDS: labetalol 5 mg/mL SDV 20mL 10 MG IVP (02:02)
[2023-05-19] MEDS: iohexol 350 mg/mL 500 mL Btl (per mL) IV (02:53)
--- NOTE | 2023-05-19 03:45 | P.HP_ITS ---
Providers/Chief Complaint 2 Admitting Physician: Timbo Johnson DO Primary Care Provider: SUE Michael-C Chief Complaint: Stroke Symptoms History of Present Illness Cristin Brice is a 62 year old female with history of hypertension hyperlipidemia anxiety and depression disorders, recent herpes zoster, peptic ulcer disease, hypothyroidism presents with sudden onset aphasia and left-sided weakness. Patient reports that she was in bed woke up with a start her heart was pounding she was having pain and she felt like her left side was's twisting internally. She went to arouse her and she could barely walk having to hold herself up and when she spoke she could not say what she wanted to say. Per her he said he could understand her but she was slurring her words and definitely weak on the left side he immediately brought her to the emergency room. She had an NIH of approximately 5-7 CT was negative for bleed and she received thrombolytics. She has shown marked improvement with an NIH of 3 the CTA was negative for further clot burden she will be admitted to the ICU Review of Systems 2 Const: Reports: body aches, daytime sleepiness, snoring and other (Difficulty sleeping, not feeling right ); Denies: fever(s) or chills Eyes: Denies: change in vision ENMT: Denies: throat pain or nasal congestion Card: Denies: chest pain or palpitations Resp: Denies: dyspnea or productive cough GI: Denies: abdominal pain, nausea, vomiting or change in stool character : Denies: dysuria Musc: Reports: joint pain (Left knee status post 2 knee replacements), joint stiffness and muscle cramps; Denies: back pain Skin/Breast: Denies: rash or lesions Neuro: Denies: headache(s) Psych: Reports: anxiety, depression, panic attacks and sleeping less Trey/Lymph: Denies: easy bruising or easy bleeding Medications/Allergies Home Medications Medication Instructions Recorded Confirmed Last Taken Type melatonin 5 mg capsule 5 mg PO BEDTIME 07/13/19 03/26/23 08/02/20 History triamcinolone acetonide 0.1 % 1 applic topical BID #60 mL 04/25/20 03/26/23 Unknown Rx lotion nystatin 100,000 unit/gram topical 1 applic topical BID #30 grams 05/26/21 03/26/23 Unknown Rx powder calcipotriene 0.005 % topical 1 applic topical DAILY #60 grams 07/27/21 03/26/23 Unknown Rx cream (Dovonex) fluticasone propionate 50 1 spray intranasal BID #16 grams 12/21/22 03/26/23 Unknown Rx mcg/actuation nasal spray,suspension (Children's Flonase Allergy Relief) albuterol sulfate 90 mcg/actuation 2 puff inhalation Q6H PRN 03/04/23 03/26/23 Unknown Rx aerosol inhaler (ProAir HFA) shortness of breath or wheezing #8.5 grams amlodipine 5 mg tablet (Norvasc) 5 mg PO DAILY #30 tabs 03/04/23 03/26/23 Unknown Rx budesonide-formoterol HFA 160 2 puff inhalation BID #10.2 grams 03/04/23 03/26/23 Unknown Rx mcg-4.5 mcg/actuation aerosol inhaler (Symbicort) cholecalciferol (vitamin D3) 125 125 mcg PO DAILY #30 caps 03/04/23 03/26/23 Unknown Rx mcg (5,000 unit) capsule clonidine HCl 0.1 mg tablet 0.1 mg PO Q12H #60 tabs 03/04/23 03/26/23 Unknown Rx cyanocobalamin (vitamin B-12) 1,000 mcg IM .one time dose #1 mL 03/04/23 03/26/23 Unknown Rx 1,000 mcg/mL injection solution diclofenac sodium 1 % topical gel 2 g topical TID #100 grams 03/04/23 03/26/23 Unknown Rx (Voltaren Arthritis Pain) duloxetine 30 mg capsule,delayed 30 mg PO BID #60 caps 03/04/23 03/26/23 Unknown Rx release hydrochlorothiazide 12.5 mg tablet 12.5 mg PO QAM #30 tabs 03/04/23 03/26/23 Unknown Rx hydroxyzine pamoate 25 mg capsule 25 mg PO BID PRN anxiety #60 caps 03/04/23 03/26/23 Unknown Rx levothyroxine 50 mcg tablet 50 mcg PO DAILY #30 tabs 03/04/23 03/26/23 Unknown Rx lisinopril 40 mg tablet 40 mg PO DAILY #30 tabs 03/04/23 03/26/23 Unknown Rx promethazine-DM 6.25 mg-15 mg/5 mL 5 ml PO .12 hours cough 7 days 03/26/23 03/26/23 Unknown Rx oral syrup #118 mL Allergies Allergy/AdvReac Type Severity Reaction Status Date / Time sucralfate [From Carafate] Allergy ALGY-Hives Verified 03/26/23 10:53 PFSH Acute 2 PFSH: Medical History Neuropathy due to herpes zoster Bronchospasm Vitamin D deficiency Colon polyp Hiatal hernia Gastritis and duodenitis Bleeding per rectum Adult onset hypothyroidism Anxiety and depression Gastritis GERD (gastroesophageal reflux disease) Gingivitis Irritable bowel syndrome with diarrhea Surgical History History of cholecystectomy History of tubal ligation History of appendectomy History of colonoscopy with polypectomy History of left knee surgery Left patella alignment History of hysterectomy Family History Other Diabetes Hypertension Denies family history of Bleeding disorder Social History Smoking and tobacco/nicotine status: former use of tobacco/nicotine Second hand smoke exposure: No Alcohol intake: never Substance/Drug Use: never Adopted: No Caregiver/support person: No Lives independently: Yes Household members: spouse and children Housing: House Marital status: service: No Current occupational status: unemployed Do you think of yourself as: Straight/Heterosexual Current gender identity: Female Vitals/I&O/Wt Last Vital Signs Pulse 56 L 05/19/23 03:36 Resp 19 H 05/19/23 03:36 BP 163/95 05/19/23 03:36 Pulse Ox 100 05/19/23 03:36 Weight last 48 hrs Weight 81.647 kg Physical Exam 2 Narrative: 62-year-old female in no acute distress at time of exam Neuro: NIH 3, 1 left arm drift, 1 left leg drift, 1 left arm ataxia HEENT head is normocephalic atraumatic pupils equal round reactive to light and commendation extraocular muscles are intact there is no scleral icterus neck is supple no JVD carotid bruits or lymphadenopathy Heart regular normal S1-S2 without murmurs clicks gallops or rubs Lungs: Clear without wheezes rales or rhonchi Abdomen: Obese soft nontender nondistended positive bowel sounds no hepatosplenomegaly Extremities no clubbing cyanosis or edema Skin: Warm and dry scar over left knee no rashes or lesions Back no obvious scoliosis or kyphosis no CVA tenderness Psych: Mood and affect appropriate for illness during further discussion patient tearful about family issues she is feeling very anxious and depressed over the last few months Urinary Catheter Management: [place]: Cath Placed During This Visit: yes Urinary Catheter Date of Insertion: 05/19/23 Urinary Catheter Time of Insertion: 01:40 Data 05/19/23 01:22 05/19/23 01:22 CT Head: My impression: Negative for hemorrhage Radiologist's impression: Similar Other Imaging: My impression: CTA head and neck negative for stenosis No ischemic or hemorrhagic areas identified Radiologist's impression: Same EKG 1: My Interpretation: Atrial flutter with 2-1 block EKG computer-generated impression: Atrial flutter versus supraventricular tachycardia with ST segment depression acute [place] A&P Assessment and plan (1) Acute right arterial ischemic stroke, middle cerebral artery (MCA): Initial presentation of an NIHSS of 5-7. CT head was negative for hemorrhage. tPA was administered in the emergency room. Patient improved to an NIH of 3 CTA of head and neck was negative. Admit to ICU for status post tPA stroke protocol patient will have MRI tomorrow and echo. No ultrasound of carotids is necessary since patient had CTA neck Working diagnosis is ischemic stroke due to years of hypertension and likely sleep apnea per 's report. Patient has refused an outpatient sleep study due to discomfort. We discussed further and she is willing to reassess in the future Aspirin when able, high-dose Lipitor, hold DVT prophylaxis due to tPA. (2) Received intravenous tissue plasminogen activator (tPA) in emergency department: Follow protocol (3) Anxiety and depression: Long discussion about humans not being able to control other people. Advised not engaging with people that upset her and seeking counseling if necessary (4) Essential (primary) hypertension: Maintain post tPA parameters with permissive hypertension for the first few days to weeks. (5) Loud snoring: Will need sleep study as an outpatient (6) Apnea present when patient supine: Will need sleep study as an outpatient Attestations 2 Medical Necessity Statement*: Patient with acute ischemic stroke status post tPA. Patient will require greater than 2 midnight stay for evaluation and management and further prevention. Coding Level of Care Code Acute Code for Chg Fwd Diagnoses Acute right arterial ischemic stroke, middle cerebral artery (MCA) I63.511 Received intravenous tissue plasminogen activator (tPA) in emergency department Z92.82 Anxiety and depression F41.9; F32.9 Essential (primary) hypertension I10 Loud snoring R06.83 Apnea present when patient supine R06.81
--- NOTE | 2023-05-19 03:50 | W.ED.NEUROSD ---
HPI - Neuro Symptoms/Deficit General: Chief Complaint: Chest Pain Stated Complaint: Stroke Symptoms Time Seen by Provider: 05/19/23 01:02 History of Present Illness: 62-year-old female who was in her normal state of health earlier in the day. notes she was still awake at midnight. She had taken some Tylenol around 10 PM for leg pain. At midnight, he says that she began to slur her words. She complained of weakness to her left upper and lower extremity. She became harder and harder to understand. She did complain of a headache. Seemingly at the same time, she began to complain of chest discomfort, and palpitations. She does not have a history of stroke or heart disease. She does have a history of hypertension. Associated symptoms: Reports chest pain, headache(s) and nausea; Deny vomiting Review of Systems Const: Denies: fever(s) Eyes: Denies: change in vision ENMT: Denies: throat pain Card: Reports: chest pain and palpitations Resp: Reports: dyspnea; Denies: productive cough or non-productive cough GI: Reports: nausea; Denies: abdominal pain or vomiting Musc: Denies: neck pain Skin/Breast: Denies: rash Neuro: Reports: headache(s), numbness in extremities, weakness in extremities, sensory changes and Slurred speech present Psych: Reports: anxiety PFSH ED PFSH: Medical History Neuropathy due to herpes zoster Bronchospasm Vitamin D deficiency Colon polyp Hiatal hernia Gastritis and duodenitis Bleeding per rectum Adult onset hypothyroidism Anxiety and depression Gastritis GERD (gastroesophageal reflux disease) Gingivitis Irritable bowel syndrome with diarrhea Surgical History History of cholecystectomy History of tubal ligation History of appendectomy History of colonoscopy with polypectomy History of left knee surgery Left patella alignment History of hysterectomy Family History Other Diabetes Hypertension Denies family history of Bleeding disorder Social History Smoking and tobacco/nicotine status: former use of tobacco/nicotine Second hand smoke exposure: No Alcohol intake: never Substance/Drug Use: never Adopted: No Caregiver/support person: No Lives independently: Yes Household members: spouse and children Housing: House Marital status: service: No Current occupational status: unemployed Do you think of yourself as: Straight/Heterosexual Current gender identity: Female NIH stroke score NIHSS: Level Of Consciousness - 1a: 0 Level Of Consciousness Questions - 1b: Both Correct Level Of Consciousness Commands - 1c: Both Correct Best Gaze - 2: Normal Visual [place] - 3: No Visual Loss Facial Palsy - 4: Normal Motor Arm Right - 5: No Drift Motor Arm Left - 5: Drift Motor Leg Right - 6: No Drift Motor Leg Left - 6: Drift Limb Ataxia - 7: Present In Two Limbs Sensory - 8: Mild To Moderate Loss Best Language - 9: No Aphasia Dysarthia - 10: Mild/Moderate Dysarthia Extinction And Inattention - 11: 0 Score: Total Score: 6 Physical Exam Const: GENERAL APPEARANCE: cooperative, in distress and ill appearing; not frail appearing HENMT: COMMON NORMALS: normocephalic, atraumatic and Normal external nose present HEAD & SCALP: normocephalic and atraumatic FACE & SINUS: normal facial exam and face symmetric NOSE: Normal external nose present Eye: COMMON NORMALS: Equal, round and reactive pupils present and EOMs intact bilaterally PUPIL: Yes Equal, round and reactive pupils present Neck/C-Spine: GENERAL: Yes trachea midline Chest: CHEST: Yes Symmetrical chest wall rise Resp: COMMON NORMALS: normal respiratory effort, No retractions, No use of accessory muscles and clear to auscultation bilaterally AUSCULTATION: clear to auscultation bilaterally Cardio: COMMON NORMALS: regular rhythm RATE: tachycardic RHYTHM: regular rhythm GI: COMMON NORMALS: Normal to inspection, nondistended, normoactive bowel sounds present Extremity: COMMON NORMALS: no pedal edema Neuro: HARMAN COMA SCALE: document GCS findings [place] coma scale eye opening: Spontaneous [place] coma scale verbal response: Orientated [place] coma scale motor response: Obey commands [place] coma scale total score: 15 SENSORY EXAM: Yes extremities (intact) Psych: COMMON NORMALS: speech normal SPEECH: Yes normal speech Skin: COMMON NORMALS: no rashes or lesions noted GENERAL SKIN EXAM: no rashes or lesions noted Course Vital Signs: Vital signs: Vital Signs Temperature 97.6 F 05/19/23 15:16 Pulse Rate 62 05/19/23 16:19 Respiratory Rate 18 05/19/23 15:16 Blood Pressure 160/126 05/19/23 15:16 Pulse Oximetry 98 05/19/23 16:19 Oxygen Delivery Me thod Nasal Cannula 05/19/23 16:19 Oxygen Flow Rate 2 05/19/23 16:19 MDM - Neuro Symptoms/Deficit Medical Decision Making The patient arrived with a heart rate in the 150s on the monitor. A flutter on EKG. There was some ST depression present. Diltiazem had been ordered, but the patient cardioverted on her own to a NSR. IV access was obtained, and the patient went to CT scan, which did not show an acute bleed. Given her significant NIH scale score, neurology was consulted for potential thrombolytic therapy. We agreed at that point that the patient would be a candidate. After obtaining the head CT demonstrating no bleed, TNKase was given. Around an hour following TNKase administration, the patient began to talk more plainly. Her weakness improved to the left side. She is still has some symptoms residually, but they are significantly improved. Spoke with the hospitalist. This patient will go to ICU for continued care and further stroke workup. CTA of the head and neck was completed in the ER after administration of thrombolytic showing no major stenosis or dissection. CBC and BMP are not remarkable. Urine drug screen and urinalysis are nonremarkable. Lab Data 05/19/23 01:22 05/19/23 01:22 Radiology Impressions Chest X-Ray 05/19/23 01:04 IMPRESSION: 1. No acute findings. 2. Stable large hiatal hernia. Head CT 05/19/23 01:04 IMPRESSION: No acute intracranial findings. ASSESSMENT: ASPECTS ([place] Stroke Program Early CT Score) is 10. Head/Neck CTA 05/19/23 01:04 IMPRESSION: 1. No major intracranial artery aneurysm, obstruction or significant stenosis. 2. No acute intracranial findings. IMPRESSION: 1. No major neck artery stenosis, aneurysm, pseudoaneurysm or occlusion. 2. Bilateral mediastinal lymphadenopathy. Further evaluation with chest CT is recommended. REFERENCES: NASCET CRITERIA. The degree of stenosis in the cervical segment of the internal carotid artery is based on NASCET criteria. Normal is no stenosis. Mild is less than 50% stenosis. Moderate is 50-69% stenosis. Severe is 70% to 99% stenosis. Total occlusion is no detectable patent lumen. ADDENDUM: 05/19/23 0332 origin of bilateral posterior cerebral arteries, which is a normal variant. Head MRI 05/19/23 12:00 IMPRESSION: No acute findings. Laboratory Results WBC 7.58 10^3/uL (3.29-11.43) 05/19/23 01:22 RBC 4.51 10^6/uL (3.85-5.65) 05/19/23 01:22 Hgb 13.10 g/dL (11.27-16.99) 05/19/23 01:22 Hct 40.7 % (36-47) 05/19/23 01:22 MCV 90.2 fl (85-98) 05/19/23 01:22 MCH 29.0 pg (27-33) 05/19/23 01:22 MCHC 32.2 g/dL (30-55) 05/19/23 01:22 RDW 13.9 % (12.1-15.1) 05/19/23 01:22 Plt Count 250 10^3/cmm (157-399) 05/19/23 01:22 MPV 10.8 fL (7.4-10.4) H 05/19/23 01:22 Neut % (Auto) 63.3 % 05/19/23 01:22 Lymph % (Auto) 19.3 % 05/19/23 01:22 Rab[place] % (Auto) 7.7 % 05/19/23 01:22 Eos % (Auto) 8.6 % 05/19/23 01:22 Baso % (Auto) 0.7 % 05/19/23 01:22 Neut # (Auto) 4.81 10^3/uL (1.8-7.7) 05/19/23 01:22 Lymph # (Auto) 1.5 10^3/uL (0.8-4.8) 05/19/23 01:22 Rab[place] # (Auto) 0.6 10^3/uL (0.2-0.9) 05/19/23 01:22 Eos # (Auto) 0.7 10^3/uL (0.0-0.8) 05/19/23 01:22 Baso # (Auto) 0.1 10^3/uL (0.0-0.1) 05/19/23 01:22 Nucleated RBC % (auto) 0 % 05/19/23 01:22 Nucleated RBCs # 0.0 /100WBC 05/19/23 01:22 PT 13.20 SECONDS (12.1-14.9) 05/19/23 01:22 INR 0.97 (0.8-1.2) 05/19/23 01:22 APTT 28.4 SECONDS (23.9-36.7) 05/19/23 01:22 Sodium 138 mmol/L (136-145) 05/19/23 01:22 Potassium 4.2 mmol/L (3.5-5.1) 05/19/23 01:22 Chloride 103 mmol/L (98-107) 05/19/23 01:22 Carbon Dioxide 23 mmol/L (22-29) 05/19/23 01:22 Anion Gap 16.2 (5-19) 05/19/23 01:22 BUN 17 mg/dL (8-23) 05/19/23 01:22 Creatinine 1.0 mg/dL (0.5-0.9) H 05/19/23 01:22 GFR Calculation 56.0 mL/min (90-130) L 05/19/23 01:22 Glucose 139 mg/dL (65-115) H 05/19/23 01:22 POC Glucose 146 mg/dL (70-110) H 05/19/23 01:06 Calculated Osmolality 290 mOsm/kg (285-295) 05/19/23 01:22 Calcium 9.4 mg/dL (8.5-10.5) 05/19/23 01:22 Total Bilirubin 0.2 mg/dL (0.15-1.2) 05/19/23 01:22 AST 30 U/L (0-32) 05/19/23 01:22 ALT 28 U/L (0-33) 05/19/23 01:22 Alkaline Phosphatase 63 U/L (35-105) 05/19/23 01:22 Troponin T Baseline 18 ng/L (0-10) H 05/19/23 01:22 Total Protein 6.5 g/dL (6.6-8.7) L 05/19/23 01:22 Albumin 4.1 g/dL (3.5-5.2) 05/19/23 01:22 Globulin 2.4 g/dL (1.3-4.6) 05/19/23 01:22 Urine Color Light yellow (Yellow) 05/19/23 01:40 Urine Appearance Clear (CLEAR) 05/19/23 01:40 Urine pH 7 (5-7) 05/19/23 01:40 Ur Specific [place] 1.010 (1.005-1.030) 05/19/23 01:40 Urine Protein Neg (Negative) 05/19/23 01:40 Urine Glucose (UA) Norm (Normal) 05/19/23 01:40 Urine Ketones Negative (Negative) 05/19/23 01:40 Urine Blood Neg (Negative) 05/19/23 01:40 Urine Nitrate Negative (Negative) 05/19/23 01:40 Urine Bilirubin Neg (Negative) 05/19/23 01:40 Urine Urobilinogen Norm mg/dL (Negative) 05/19/23 01:40 Ur Leukocyte Esterase Negative (Negative) 05/19/23 01:40 Urine Opiates Screen Negative ng/mL (Negative) 05/19/23 01:40 Ur Barbiturates Screen Negative ng/mL (Negative) 05/19/23 01:40 Ur Phencyclidine Scrn Negative ng/mL (Negative) 05/19/23 01:40 Ur Amphetamines Screen Negative ng/mL (Negative) 05/19/23 01:40 U Benzodiazepines Scrn Negative ng/mL (Negative) 05/19/23 01:40 Urine Cocaine Screen Negative ng/mL (Negative) 05/19/23 01:40 U Marijuana (THC) Screen Negative ng/mL (Negative) 05/19/23 01:40 All radiology interpretation(s) finalized by discharge Critical Care Time Critical Care Time: Critical Care Time: Yes Total Critical Care Time: 40 Attestation: This case had a high probability of a clinically significant, sudden, or life threatening deterioration of this patient's condition which required my full and direct attention, intervention and personal management. Time is independent of any procedures performed. Discharge Plan Discharge Patient Disposition: Admitted As Inpatient Admit Provider: Timbo Johnson Clinical Impression: Acute right arterial ischemic stroke, middle cerebral artery (MCA), Received intravenous tissue plasminogen activator (tPA) in emergency department, Chest pain, Atrial fibrillation and flutter Condition: Serious Coding Level of Care Code ED Manufacturing Project Manager for Adan Mckeon
--- NOTE | 2023-05-19 07:03 | ECG_ITS ---
[facility], Former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 Measurements Intervals [place] Rate: 54 P: 54 WV: 151 QRS: 5 QRSD: 102 T: 5 QT: 433 QTc: 413 Interpretive Statements SINUS BRADYCARDIA NONSPECIFIC T-WAVE ABNORMALITY Compared to ECG 05/19/2023 01:01:58 T-wave abnormality now present Atrial flutter no longer present ST (T wave) deviation no longer present Electronically Signed On 05-19-2023 21:03:08 CLOTH MEASURER MACHINE by Aileen Colin M.D. [id number]
[2023-05-19] MEDS: acetaminophen 500 mg Tablet 650 MG PO ×2 (07:15→20:35)
[2023-05-19] MEDS: sodium chloride 0.9% 1,000 ML 100 ML IV (07:17)
[2023-05-19 07:25] LABS: Troponin 5 6HR 56.22 ng/L (0-10)
[2023-05-19 07:40] LABS: Troponin 5 6HR Delta 38.22 ng/L (0-12)
--- NOTE | 2023-05-19 12:00 | MRR_ITS ---
PROCEDURE INFORMATION: Exam: MR Head Without Contrast Exam date and time: 05/19/2023 9:50 AM Age: 62 years old Clinical indication: Altered mental status/memory loss; Confusion or disorientation; Additional info: Right mca stroke S/P tpa TECHNIQUE: Imaging protocol: Magnetic resonance imaging of the head without contrast. COMPARISON: CT angio headneck* [id number] 05/19/2023 2:42 AM FINDINGS: Brain: Normal. No acute infarct. No hemorrhage. No significant white matter disease. No edema. Cerebral ventricles: Normal. No ventriculomegaly. Bones/joints: Unremarkable. Paranasal sinuses: Normal as visualized. No acute sinusitis. Mastoid air cells: Normal as visualized. No mastoid effusion. Orbital cavities: Unremarkable. Soft tissues: Unremarkable. MR/MR head wo con* [id number] IMPRESSION: No acute findings.
--- NOTE | 2023-05-19 15:00 | P.PNCC_ITS ---
Stroke Alert Activation ED Arrival Date: 05/19/23 ED Arrival Time: : Last Known Normal/at Baseline: 3-4 hours ago Stroke Alert Activation Time: : Stroke Alert Data/Treatment Time to CT of Head: CT Results Time: : CT Impression: normal Stroke Risk Factors: atrial fibrillation and hypertension tPA Started Date: 05/19/23 tPA Started Time: tPA Started - Time: 02:00 tPA Admin Prior to Arrival: No Patient & Family Educated on: Cause of Stroke, Risk Factors, Treament Plan and Stroke Education Booklet Other Patient & Family Education: Importance of CPAP Other Information: I was called stat for stroke at 1:00 this morning and talked with Scar Quinonez. He informed me that the patient had observed onset of left-sided weakness at midnight. The patient presented within an hour of onset of symptoms. The patient says in retrospect that she woke up 2 hours after she went to sleep at 9 PM . She woke up because her heart was pounding. when she woke up she tried to rouse her and her speech was garbled. The left-sided weakness developed later and that is when her elected to bring her in around midnight. She received thrombolytic therapy after her CT head was unremarkable. She was in rapid atrial fibrillation when she arrived here and that is new onset for her. She has severe hypertension and is on multiple medications for that. MRI brain was negative. CT angiogram of the neck and cerebral vessels were unremarkable. Critical Care Time Critical Care Time: 30 - 74 mins A&P Assessment and plan (1) Acute right arterial ischemic stroke, middle cerebral artery (MCA): She presented with dysarthria and profound left-sided weakness that resolved after TNK. I am presuming this was of cardiac origin as she was in atrial fibrillation with an uncontrolled rate when she arrived. It is my opinion that she should be discharged on Eliquis 5 mg twice daily. I took time to review her risk factors. I asked her to start a walking program. I asked her to keep an eye on her blood pressure. I talked with her about Eliquis. I took time to answer questions. (2) Received intravenous tissue plasminogen activator (tPA) in emergency department: (3) Atrial fibrillation and flutter: I do not see any reason to do ongoing monitoring if she was documented to be in atrial fibrillation when she arrived. She does not have carotid disease and had a definite stroke, aborted by TNK, and she should be on antithrombotic therapy. (4) Obstructive sleep apnea: She has known obstructive sleep apnea and has been noncompliant because the mask was uncomfortable for her. I explained to her that she could practice the mask while she is up and awake during the daytime to make it more tolerable. She needs to have a repeat sleep study and I am hoping that Radha Palomares will set that up otherwise I will when I see her in my office in a few weeks. Coding Level of Care Code Acute Code for [facility] Fwd Diagnoses Acute right arterial ischemic stroke, middle cerebral artery (MCA) I63.511 Received intravenous tissue plasminogen activator (tPA) in emergency department Z92.82 Atrial fibrillation and flutter I48.91; I48.92 Obstructive sleep apnea G47.33
--- NOTE | 2023-05-19 16:14 | W.PM.EVENTAC ---
Event Note Event Note: Patient seen and evaluated. She reports symptoms completely resolved now. She is status post TNKace. We discussed her normal MRI finding. Echocardiogram is pending. She was found to have atrial flutter in the ED. She should be assessed for chronic anticoagulation, this can be performed after deemed safe by neurology. Continue to monitor blood pressure closely.
--- NOTE | 2023-05-19 16:56 | PC.PT ---
PT evaluation on hold x 24 hours from patient receiving TNKase, at 1:04 AM,05/19/23, per this facility's current guidelines.
[2023-05-19] MEDS: duloxetine 30 mg Capsule PO (16:58)
[2023-05-19] MEDS: atorvastatin 40 mg Tablet 80 MG PO (20:35)
[2023-05-20] VITALS (95 sets, daily range): BP systolic 104–184; BP diastolic 62–103; PULSE 52–91; RESP 14–28; TEMP 36.3–36.8; O2SAT 85–96
--- NOTE | 2023-05-20 02:04 | CTR_ITS ---
PROCEDURE INFORMATION: Exam: CT Head Without Contrast Exam date and time: 05/20/2023 2:02 AM Age: 62 years old Clinical indication: Other: Tnkase f/u; Patient HX: 24 hour f/u post tnkase admin. ; Additional info: Eval for stroke, S/P tnk 24 hrs ago TECHNIQUE: Imaging protocol: Computed tomography of the head without contrast. Radiation optimization: All CT scans at this facility use at least one of these dose optimization techniques: automated exposure control; mA and/or kV adjustment per patient size (includes targeted exams where dose is matched to clinical indication); or iterative reconstruction. COMPARISON: MR head wo con* [id number] 05/19/2023 9:50 AM RADIATION DOSE METRICS: Total DLP (mGy-cm): 989.28 FINDINGS: Brain: No focal hemorrhage or midline shift is identified. The ventricles and parenchyma show mild atrophy and chronic bicerebral white matter ischemic change. Cerebral ventricles: No ventriculomegaly or evidence of hydrocephalus. Paranasal sinuses: No evidence of acute sinusitis. Mastoid air cells: Visualized mastoid air cells are well aerated. Bones/joints: No displaced skull fracture is noted. Soft tissues: Unremarkable. Vasculature: Diffuse vascular calcifications are present. CT/CT head wo con* [id number] IMPRESSION: 1. There is no post tPA hemorrhage identified. 2. Mild age-related changes.
[2023-05-20 04:01] LABS: Estmated Average Glucose 137; Hemoglobin A1C 6.4 % (4.0-6.0)
[2023-05-20 04:08] LABS: Alanine Aminotransferase 25 U/L (0-33); Albumin Level 3.7 g/dL (3.5-5.2); Alkaline Phosphatase 55 U/L (35-105); Anion Gap 11.8 (5-19); Aspartate Amino Transferase 24 U/L (0-32); Blood Urea Nitrogen 14 mg/dL (8-23); Calcium 8.8 mg/dL (8.5-10.5); Carbon Dioxide 24 mmol/L (22-29); Chloride 108 mmol/L (98-107); Creatinine Clr Calc Pharmacy 57.8912; Globulin 2.4 g/dL (1.3-4.6); Glomerular Filtration Rate 50.2 mL/min (90-130); Glucose 143 mg/dL (65-115); Osmolality Calculated 293 mOsm/kg (285-295); Phosphorus 3.3 mg/dL (2.5-4.5); Potassium 3.8 mmol/L (3.5-5.1); Sodium 140 mmol/L (136-145); Total Bilirubin 0.4 mg/dL (0.15-1.2); Total Protein 6.1 g/dL (6.6-8.7)
[2023-05-20 04:13] LABS: Chol HDL Ratio 3.82 mg/dL (0.0-4.40); Cholesterol 149 mg/dL (0-200); HDL Cholesterol 39 mg/dL (60-100); LDL Cholesterol Calculated 82 mg/dL (50-129); Triglycerides 138 mg/dL (0-150)
--- NOTE | 2023-05-20 06:00 | USCV_ITS ---
Cristin Brice Age: 62 Gender: F : 1960 Exam Date: 05/20/2023 10:02 Ordering Phys: Timbo Johnson DO Technologist: Exam [place] [facility] [place] Indication: cva BP: 146 / 94 HR: Rhythm: Sinus Technical Quality: Adequate MEASUREMENTS (Male / Female) Normal Values 2D ECHO LV Systolic Diameter PLAX 2.3 cm IVS Diastolic Thickness 1.5 cm 0.6 - 1.0 / 0.6 - 0.9 cm IVS Systolic Thickness 1.5 cm LVPW Diastolic Thickness 1.4 cm 0.6 - 1.0 / 0.6 - 0.9 cm LVPW Systolic Thickness 1.5 cm LA Diameter 2.1 cm DOPPLER AV Peak Velocity 147.0 cm/s LVOT Peak Velocity 129.0 cm/s MV Area PHT 2.7 cm squared Mitral E to A Ratio 0.9 TR Peak Velocity 229.0 cm/s TR Peak Gradient 21.0 mmHg TV Peak E Velocity 66.0 cm/s PV Peak Velocity 111.0 cm/s FINDINGS Left Ventricle Left ventricle is normal size. LV systolic function is normal with EF of 55 to 60%. No regional wall motion abnormalities are seen. Right Ventricle Normal in size and function Right Atrium Normal in size Left Atrium Normal in size Mitral Valve Structurally normal mitral valve. Trace mitral regurgitation Aortic Valve Structurally normal aortic valve. No significant stenosis or regurgitation. Tricuspid Valve Mild tricuspid regurgitation. Insufficient TR jet to evaluate RVSP. Pulmonic Valve Not well visualized Pericardium Normal Aorta Normal in size IVC Not well visualized CONCLUSIONS LV systolic function is normal with EF of 55 to 60%. Trace mitral regurgitation Mild tricuspid regurgitation No comparison studies are available. Gurwinder Daniel MD (Electronically Signed) Final Date: 20 May 2023 17:10 S
[2023-05-20] MEDS: aspirin 325 mg EC Tablet PO (09:18)
[2023-05-20] MEDS: duloxetine 30 mg Capsule PO (09:18)
[2023-05-20] MEDS: levothyroxine 50 mcg Tablet PO (09:18)
--- NOTE | 2023-05-20 12:30 | P.DS_ITS ---
Discharge Providers Date of Admission: 05/19/23 03:35 Date of Discharge: May 20, 2023 Attending Provider at Admission: Timbo Johnson DO Attending Provider at Discharge: Lolita Cardenas MD Primary Care Provider: JEN Michael Diagnoses at Discharge Discharge Diagnosis (1) Acute right arterial ischemic stroke, middle cerebral artery (MCA): Status: Acute (2) Received intravenous tissue plasminogen activator (tPA) in emergency department: Status: Acute (3) Atrial fibrillation and flutter: Status: Acute (4) Obstructive sleep apnea: Status: Acute Reason for Visit Reason for Visit: Stroke Symptoms Hospital Course Hospital Course Patient presented to the hospital with left-sided weakness, slurred speech, headache, chest discomfort, was found to be in atrial fibrillation with RVR on initial EKG upon presentation. NIH score 6. ST depression seen on EKG. Diltiazem drip ordered. Patient herself converted to normal sinus rhythm. CT head negative for intracranial findings. Given significant NIH scale score neurology was consulted and TNKase was given to patient. An hour following TNKase administration patient began to talk normally. Weakness improved left side symptoms significantly improved. She was admitted for post TNKase care. CTA head and neck completed in ER showed no major stenosis or dissection. Urine drug screen negative, urinalysis unremarkable. Neurology evaluated patient. Recommendation to discharge patient on Eliquis 5 mg twice daily. Patient also has obstructive sleep apnea and she will need an out patient sleep study. Patient to follow-up with neurology after discharge in 2 weeks. Seen this morning. Asymptomatic. Echocardiogram also completed. Results pending at this time. Patient will be discharged home. Physical Exam Narrative: No acute distress, normal S1-S2 No acute distress Sitting up comfortably in bed. at bedside as well. Patient was able to walk around the unit as well. Cranial nerves II to XII intact Strength 5 out of 5 bilateral upper and lower extremities No facial asymmetry, no droop noted. No slurred speech. Patient seen she is back to her baseline and feels great. Urinary Catheter Management: Winters: Cath Placed During This Visit: yes Reason for Continuing Indwelling Catheter: Accurate Measurement of Urinary Output in Critically Ill Patients Urinary Catheter Date of Insertion: 05/19/23 Urinary Catheter Time of Insertion: 01:40 Discharge Data Studies Completed and Pending Completed Studies During Hospitalization Category Date Time Status CT angio headneck* [id number] Stat Cat Scan 05/19/23 01:[address] head thrombolytic [id number] Stat Cat Scan 05/19/23 01:[address] head wo con* [id number] Routine Cat Scan 05/20/23 02:04 Completed XR chest 1V portable [id number] Stat Exams 05/19/23 01:04 Completed MR head wo con* [id number] Routine MRI 05/19/23 12:00 Completed Pending at discharge Category Date Time Status CV. echo complete* [id number] Routine Ultrasound 05/20/23 06:00 Taken Radiology Impressions Chest X-Ray 05/19/23 01:04 IMPRESSION: 1. No acute findings. 2. Stable large hiatal hernia. Head/Neck CTA 05/19/23 01:04 IMPRESSION: 1. No major intracranial artery aneurysm, obstruction or significant stenosis. 2. No acute intracranial findings. IMPRESSION: 1. No major neck artery stenosis, aneurysm, pseudoaneurysm or occlusion. 2. Bilateral mediastinal lymphadenopathy. Further evaluation with chest CT is recommended. REFERENCES: NASCET CRITERIA. The degree of stenosis in the cervical segment of the internal carotid artery is based on NASCET criteria. Normal is no stenosis. Mild is less than 50% stenosis. Moderate is 50-69% stenosis. Severe is 70% to 99% stenosis. Total occlusion is no detectable patent lumen. ADDENDUM: 05/19/23 0332 origin of bilateral posterior cerebral arteries, which is a normal variant. Head MRI 05/19/23 12:00 IMPRESSION: No acute findings. Head CT 05/20/23 02:04 IMPRESSION: 1. There is no post tPA hemorrhage identified. 2. Mild age-related changes. Laboratory Results WBC 7.58 10^3/uL (3.29-11.43) 05/19/23 01:22 RBC 4.51 10^6/uL (3.85-5.65) 05/19/23 01:22 Hgb 13.10 g/dL (11.27-16.99) 05/19/23 01:22 Hct 40.7 % (36-47) 05/19/23 01:22 MCV 90.2 fl (85-98) 05/19/23 01:22 MCH 29.0 pg (27-33) 05/19/23 01:22 MCHC 32.2 g/dL (30-55) 05/19/23 01:22 RDW 13.9 % (12.1-15.1) 05/19/23 01:22 Plt Count 250 10^3/cmm (157-399) 05/19/23 01:22 MPV 10.8 fL (7.4-10.4) H 05/19/23 01:22 Neut % (Auto) 63.3 % 05/19/23 01:22 Lymph % (Auto) 19.3 % 05/19/23 01:22 [place] % (Auto) 7.7 % 05/19/23 01:22 Eos % (Auto) 8.6 % 05/19/23 01:22 Baso % (Auto) 0.7 % 05/19/23 01:22 Neut # (Auto) 4.81 10^3/uL (1.8-7.7) 05/19/23 01:22 Lymph # (Auto) 1.5 10^3/uL (0.8-4.8) 05/19/23 01:22 [place] # (Auto) 0.6 10^3/uL (0.2-0.9) 05/19/23 01:22 Eos # (Auto) 0.7 10^3/uL (0.0-0.8) 05/19/23 01:22 Baso # (Auto) 0.1 10^3/uL (0.0-0.1) 05/19/23 01:22 Nucleated RBC % (auto) 0 % 05/19/23 01:22 Nucleated RBCs # 0.0 /100WBC 05/19/23 01:22 PT 13.20 SECONDS (12.1-14.9) 05/19/23 01:22 INR 0.97 (0.8-1.2) 05/19/23 01:22 APTT 28.4 SECONDS (23.9-36.7) 05/19/23 01:22 Sodium 140 mmol/L (136-145) 05/20/23 03:10 Potassium 3.8 mmol/L (3.5-5.1) 05/20/23 03:10 Chloride 108 mmol/L (98-107) H 05/20/23 03:10 Carbon Dioxide 24 mmol/L (22-29) 05/20/23 03:10 Anion Gap 11.8 (5-19) 05/20/23 03:10 BUN 14 mg/dL (8-23) 05/20/23 03:10 Creatinine 1.1 mg/dL (0.5-0.9) H 05/20/23 03:10 GFR Calculation 50.2 mL/min (90-130) L 05/20/23 03:10 Glucose 143 mg/dL (65-115) H 05/20/23 03:10 POC Glucose 146 mg/dL (70-110) H 05/19/23 01:06 Estimat Average Glucose 137 05/20/23 03:10 Hemoglobin A1c 6.4 % (4.0-6.0) H 05/20/23 03:10 Calculated Osmolality 293 mOsm/kg (285-295) 05/20/23 03:10 Calcium 8.8 mg/dL (8.5-10.5) 05/20/23 03:10 Phosphorus 3.3 mg/dL (2.5-4.5) 05/20/23 03:10 Total Bilirubin 0.4 mg/dL (0.15-1.2) 05/20/23 03:10 AST 24 U/L (0-32) 05/20/23 03:10 ALT 25 U/L (0-33) 05/20/23 03:10 Alkaline Phosphatase 55 U/L (35-105) 05/20/23 03:10 Troponin T Baseline 18 ng/L (0-10) H 05/19/23 01:22 Troponin T Hi Sens 6Hr 56.22 ng/L (0-10) H 05/19/23 06:58 Troponin T Hi Sens 6Hr Delta 38.22 ng/L (0-12) H* 05/19/23 06:58 Total Protein 6.1 g/dL (6.6-8.7) L 05/20/23 03:10 Albumin 3.7 g/dL (3.5-5.2) 05/20/23 03:10 Globulin 2.4 g/dL (1.3-4.6) 05/20/23 03:10 Triglycerides 138 mg/dL (0-150) 05/20/23 03:10 Cholesterol 149 mg/dL (0-200) 05/20/23 03:10 LDL Cholesterol, Calc 82 mg/dL (50-129) 05/20/23 03:10 HDL Cholesterol 39 mg/dL (60-100) L 05/20/23 03:10 LDL/HDL Ratio 2.10 RATIO (0.00-3.22) 05/20/23 03:10 Cholesterol/HDL Ratio 3.82 mg/dL (0.0-4.40) 05/20/23 03:10 Urine Color Light yellow (Yellow) 05/19/23 01:40 Urine Appearance Clear (CLEAR) 05/19/23 01:40 Urine pH 7 (5-7) 05/19/23 01:40 Ur Specific [place] 1.010 (1.005-1.030) 05/19/23 01:40 Urine Protein Neg (Negative) 05/19/23 01:40 Urine Glucose (UA) Norm (Normal) 05/19/23 01:40 Urine Ketones Negative (Negative) 05/19/23 01:40 Urine Blood Neg (Negative) 05/19/23 01:40 Urine Nitrate Negative (Negative) 05/19/23 01:40 Urine Bilirubin Neg (Negative) 05/19/23 01:40 Urine Urobilinogen Norm mg/dL (Negative) 05/19/23 01:40 Ur Leukocyte Esterase Negative (Negative) 05/19/23 01:40 Urine Opiates Screen Negative ng/mL (Negative) 05/19/23 01:40 Ur Barbiturates Screen Negative ng/mL (Negative) 05/19/23 01:40 Ur Phencyclidine Scrn Negative ng/mL (Negative) 05/19/23 01:40 Ur Amphetamines Screen Negative ng/mL (Negative) 05/19/23 01:40 U Benzodiazepines Scrn Negative ng/mL (Negative) 05/19/23 01:40 Urine Cocaine Screen Negative ng/mL (Negative) 05/19/23 01:40 U Marijuana (THC) Screen Negative ng/mL (Negative) 05/19/23 01:40 Vitals Last Vital Signs Temp 97.8 F 05/20/23 08:00 Pulse 84 05/20/23 12:15 Resp 17 05/20/23 12:15 BP 152/80 05/20/23 12:15 Pulse Ox 93 05/20/23 12:15 O2 Del Method Room Air 05/19/23 18:05 O2 Flow Rate 2 05/19/23 16:19 Discharge Plan Discharge Patient Disposition: Home Condition: Good Prescriptions: New atorvastatin 40 mg Tablet 80 mg PO BEDTIME Qty: 60 0RF Eliquis 5 mg tablet 5 mg PO BID Qty: 60 0RF diltiazem HCl 120 mg capsule,extended release 24 hr 120 mg PO DAILY 30 Days Qty: 30 0RF Continued melatonin 5 mg capsule 5 mg PO BEDTIME triamcinolone acetonide 0.1 % lotion 1 applic topical BID Qty: 60 0RF Hold Instructions: Doctor's Order calcipotriene [Dovonex] 0.005 % cream 1 applic topical DAILY Qty: 60 0RF Rx Instructions: rub in gently and completely albuterol sulfate [ProAir HFA] 90 mcg/actuation HFA aerosol inhaler 2 puff inhalation Q6H PRN (Reason: shortness of breath or wheezing) Qty: 8.5 5RF cyanocobalamin (vitamin B-12) 1,000 mcg/mL solution 1,000 mcg IM .one time dose Qty: 1 5RF cholecalciferol (vitamin D3) 125 mcg (5,000 unit) capsule 125 mcg PO DAILY Qty: 30 5RF duloxetine 30 mg capsule,delayed release(DR/EC) 30 mg PO BID Qty: 60 5RF hydroxyzine pamoate 25 mg capsule 25 mg PO BID PRN (Reason: anxiety) Qty: 60 5RF levothyroxine 50 mcg tablet 50 mcg PO DAILY Qty: 30 5RF lisinopril 40 mg tablet 40 mg PO DAILY Qty: 30 5RF promethazine-DM 6.25-15 mg/5 mL syrup 5 ml PO .12 hours 7 Days Qty: 118 0RF Flonase 50 mcg/actuation [place],Suspension 1 spray INTRANASAL BID Rx Instructions: administer into each nostril acetaminophen 325 mg Tablet 325 mg PO QID PRN (Reason: Pain) 30 Days Qty: 30 0RF Changed clonidine HCl 0.1 mg tablet 0.1 mg PO Q12H PRN (Reason: hypertension) Qty: 60 5RF Discontinued amlodipine [Norvasc] 5 mg tablet 5 mg PO DAILY Qty: 30 5RF hydrochlorothiazide 12.5 mg tablet 12.5 mg PO QAM Qty: 30 5RF Discharge Orders: Discharge Order (Routine); Ordered 05/20/23 Ordered By: Lolita Cardenas Referrals: Ayse Guillen MD [Physician] - 2 weeks Discharge Diet: Cardiac Discharge Activity: Resume usual activity Patient Instructions: Opioid Safety Discharge Attestations Time Spent in Discharge Care*: greater than 30 min Quality Metrics Clinical Quality Measures [ No reported AMI, CVA or VTE this stay] Coding Level of Care Code 97410 Total time (in minutes) for Discharge: 32 Diagnoses Acute right arterial ischemic stroke, middle cerebral artery (MCA) I63.511 Received intravenous tissue plasminogen activator (tPA) in emergency department Z92.82 Atrial fibrillation and flutter I48.91; I48.92 Obstructive sleep apnea G47.33
--- NOTE | 2023-05-20 12:54 | PC.NURSE ---
BP trending upward. BP currently 172/84. Previous BP 180/95. Dr Cardenas notified. Pt's home BP meds restarted.
[2023-05-20] MEDS: lisinopril 20 mg Tablet 40 MG PO (13:11)
== END 2023-05-20 13:55 | disposition home or self-care (01) | DRG 62 ==
LOC: ER 01:02 → ICU 03:35
PROVIDERS: Internal Medicine; Admitting Provider Internal Medicine; Emergency Provider Emergency Medicine; PCP Nurse Practitioner; Visit Provider Internal Medicine
DX: I63.9 Cerebral infarction, unspecified (principal); B02.29 Other postherpetic nervous system involvement; G81.94 Hemiplegia, unspecified affecting left nondominant side; R47.01 Aphasia; I10 Essential (primary) hypertension; E78.5 Hyperlipidemia, unspecified; F41.9 Anxiety disorder, unspecified; F32.A Depression, unspecified; E03.9 Hypothyroidism, unspecified; K21.9 Gastro-esophageal reflux disease without esophagitis; I48.91 Unspecified atrial fibrillation; G47.33 Obstructive sleep apnea (adult) (pediatric); Z87.11 Personal history of peptic ulcer disease; Z87.891 Personal history of nicotine dependence
CPT/HCPCS: 36415; 36416; 51702; 70450; 70496; 70498; 70551; 71045; 80053; 80061; 80069; 80306; 81003; 82962; 83036; 84484; 85025; 85610; 85730; 92523; 92610; 93005; 93306; 96365; 96366; 96375; 96376; 97110; 97161; 97165; 99285; J3101; J3490; J7030; Q9967

== ENCOUNTER 2023-06-11 15:40 | Outpatient (CLI) | payer OTHER, SELFPAY ==
--- NOTE | 2023-06-11 16:08 | CTR_ITS ---
PROCEDURE INFORMATION: Exam: CT Chest Without Contrast; Diagnostic Exam date and time: 06/11/2023 4:10 PM Age: 62 years old Clinical indication: Other: Localized enlarged lymph nodes; Additional info: R59.0 - localized enlarged lymph nodes TECHNIQUE: Imaging protocol: Diagnostic computed tomography of the chest without contrast. Radiation optimization: All CT scans at this facility use at least one of these dose optimization techniques: automated exposure control; mA and/or kV adjustment per patient size (includes targeted exams where dose is matched to clinical indication); or iterative reconstruction. COMPARISON: CR (CHEST, ) 05/19/2023 1:34 AM RADIATION DOSE METRICS: Total DLP (mGy-cm): 394 FINDINGS: Lungs: Mild hypoventilatory changes posteriorly lower lung zones. Lung lovett are otherwise aerated and clear. 4 mm perifissural pulmonary nodule right midlung zone abutting the major fissure, likely benign. Pleural spaces: Unremarkable. No pneumothorax. No pleural effusion. Heart: Heart is not significantly enlarged. No significant coronary artery calcifications. No significant pericardial effusion. Lymph nodes: Scattered nonenlarged mediastinal and left hilar lymph nodes some which are calcified favoring chronic granulomatous changes. Vasculature: Unremarkable. No aortic aneurysm. Diaphragm: Moderate size hiatal hernia. Liver: There is diffuse fat deposition throughout the liver. No masses detected. Kidneys and ureters: 2 cm cystic lesion upper pole left kidney that cannot be resolved as a benign cyst on this exam based on density readings. Bones/joints: Unremarkable. No acute fracture. Soft tissues: Unremarkable. CT/CT chest wo con [id number] IMPRESSION: 1. Nonenlarged mediastinal lymph nodes some which are partially calcified favoring chronic granulomatous etiology. 2. 4 mm perifissural pulmonary nodule right mid lung zone likely benign. Follow-up as clinically indicated. 3. 2 cm exophytic upper pole cyst left kidney that cannot be resolved as a simple cyst. Recommend nonemergent renal ultrasound exam for further evaluation. 4. Moderate size hiatal hernia. For patients at low risk (minimal or absent history of smoking and of other known risk factors), no routine follow-up is indicated. For patients at high risk (history of smoking or of other known risk factors), consider optional CT Chest at 12 months. (Reference: Emily) References: Emily Sweet et al. Guidelines for Management of Incidental Pulmonary Nodules Detected on CT Images: From the Fleischner Society 2017. Radiology. 2017;284(1):228-243. COMMENTS: Consistent with the [employer] [employer]'s Incidental Findings Committee white paper (J Am Hipolito Radiol 2018): Any incidental renal lesion less than 1 cm or classified as too small to characterize, or any incidental cystic renal lesion characterized as simple-appearing, is likely benign. No follow-up imaging is recommended for these lesions per consensus recommendations based on imaging criteria.
== END 2023-06-11 15:41 | disposition home or self-care (01) ==
LOC: RAD 15:40
PROVIDERS: PCP Nurse Practitioner; Visit Provider Specialist
DX: R59.0 Localized enlarged lymph nodes (principal); R91.1 Solitary pulmonary nodule; N28.1 Cyst of kidney, acquired; K44.9 Diaphragmatic hernia without obstruction or gangrene
CPT/HCPCS: 71250

== ENCOUNTER 2023-06-25 08:19 | Outpatient (CLI) | payer OTHER, SELFPAY ==
[2023-06-25 08:34] VITALS: BMI 30.7
--- NOTE | 2023-06-25 08:34 | ECG_ITS ---
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 Interpretive Statements NAME OF STUDY: LEXISCAN SESTAMIBI STRESS TEST INDICATION: [Unstable Angina] Procedure: At the baseline, the blood pressure was 107/60 mmHg with a heart rate of 52 bpm. The electrocardiogram showed sinus bradycardia, normal axis with normal ST and T's. The Lexiscan was infused over a period of 20 seconds. A total of 0.4 mg of Lexiscan was infused. The stress phase was continued for a total of 5 minutes. Heart rate was at the end of stress phase was 75 bpm and a blood pressure of 115/61 mmHg. The EKG at the peak infusion revealed normal sinus rhythm with no significant ST-T wave changes. Sestamibi was injected 20 seconds after the Lexiscan infusion. Blood pressure at the end of recovery phase was 120/57 mmHg with a heart rate of 74 bpm. Conclusion: 1. Normal EKG response to Lexiscan infusion 2. No Lexiscan induced chest pain or cardiac arrhythmia. 3. Normal blood pressure and heart rate response. 4. Sestamibi/sestamibi perfusion scan pending; see separate report. Electronically Signed On 07-11-2023 7:02:58 CDT by Gurwinder Daniel M.D. [email or web address]
--- NOTE | 2023-06-25 08:35 | NMCV_ITS ---
NM scott perf SPECT r/s* [id number] Cristin Brice Age: 62 Gender: F : 1960 Exam Date: 06/25/2023 08:35 Ordering Phys: Ayse Guillen MD Technologist: MARY ANNE Riggs Exam Location: [facility] Indications: UNSTABLE ANGINA STRESS TEST Please see separate stress test report in [facility] for full findings IMAGE PROTOCOL Rest/Stress 1 Lexiscan Day Radiopharmaceutical Dose (mCi) Administration Site Administered by Rest: Tc-99m 10.7 IV MARY ANNE Holman Sestamibi Stress:Tc-99m 32.6 IV MAYR ANNE Holman Sestamibi Rest: 25-Jun-2023 60 Discovery 630 Stress: 25-Jun-2023 30 Discovery 630 0.4mg Lexiscan. Images obtained in supine and prone position. SPECT RESULTS Technical Quality: Excellent Raw Data Analysis: Normal Image Corrections: No attenuation or motion correction applied Summed Stress Score: 0 Summed Rest Score: 0 Summed Difference Score: 0 PERFUSION FINDINGS SPECT images demonstrate homogeneous tracer distribution throughout the myocardium. FUNCTIONAL RESULTS (calculated via Gated SPECT) Stress Image LV EF (%): 81 Stress EDV (mL):79 TID: 1.21 Stress ESV (mL):15 FUNCTIONAL FINDINGS: There is normal left ventricular systolic function. IMPRESSIONS 1. Normal myocardial perfusion imaging with no evidence of ischemia 2. LV systolic function is normal Gurwinder Daniel MD (Electronically Signed) Final Date: 25 June 2023 15:32 S
[2023-06-25] MEDS: regadenoson 0.4 Mg/5 ml Syringe 0.400000000000000022 MG IVP (10:05)
[2023-06-25 10:15] VITALS: BP 120/57; PULSE 74
== END 2023-06-25 08:20 | disposition home or self-care (01) ==
PROVIDERS: PCP Nurse Practitioner; Visit Provider Specialist
DX: I20.0 Unstable angina (principal)
CPT/HCPCS: 36415; 78452; 93017; 96374; A9500; J2785

== ENCOUNTER 2023-06-28 07:37 | Outpatient (CLI) | payer OTHER, SELFPAY ==
--- NOTE | 2023-06-28 08:15 | US_ITS ---
WS: [id number] RENAL ULTRASOUND HISTORY: N28.89 - Other specified disorders of kidney and ureter COMPARISON: 09/22/2014, chest CT 06/11/2023, CT abdomen 01/04/2019 TECHNIQUE: 2-D and color Doppler imaging of the kidney submitted. Right kidney: 10.1 cm x 5.4 cm x 4.9 cm. Cortex: 1.0 cm Poorly visualized kidney. Poor cortical measured differentiation. Increased echogenicity. No mass or obstruction. Left kidney: 10.3 cm x 4.1 cm x 5.2 cm. Cortex: 1.0 cm Poorly differentiated corticomedullary junction. There is increased echogenicity throughout the kidne y. There are multiple small cystic masses. Cyst from the upper pole is identified measuring 3.0 x 2.0 x 2.4 cm. Described as a cyst on a prior CT from 01/04/2019. No solid mass identified. Aorta: Poorly visualized. Urinary Bladder: Normal distention. Cirrhotic liver. IMPRESSION: 1. No renal obstruction. 2. Moderate chronic medical renal disease. 3. Multiple cysts LEFT kidney. Largest upper pole measures 3.0 x 2.0 x 2.4 cm. 4. Cirrhotic liver.
== END 2023-06-28 07:38 | disposition home or self-care (01) ==
LOC: RAD 07:38
PROVIDERS: PCP Nurse Practitioner; Visit Provider Specialist
DX: N28.89 Other specified disorders of kidney and ureter (principal); N28.1 Cyst of kidney, acquired; K74.60 Unspecified cirrhosis of liver
CPT/HCPCS: 76770

== ENCOUNTER → 2023-08-01 08:53 | Outpatient (BNVA) | payer OTHER, SELFPAY | PROVIDERS: PCP Nurse Practitioner; Visit Provider Nurse Practitioner | DX: E55.9 Vitamin D deficiency, unspecified (principal); E11.9 Type 2 diabetes mellitus without complications; E03.8 Other specified hypothyroidism | CPT/HCPCS: 80053; 80061; 82306; 82607; 83036; 84443; 85025 ==

== ENCOUNTER → 2023-10-28 15:48 | Outpatient (BNVA) | payer OTHER, SELFPAY | PROVIDERS: PCP Nurse Practitioner; Visit Provider Nurse Practitioner | DX: E11.9 Type 2 diabetes mellitus without complications (principal) | CPT/HCPCS: 80053; 83036 ==

== ENCOUNTER 2024-09-29 09:55 | Outpatient (CLI) | payer MEDICARE, SELFPAY ==
--- NOTE | 2024-09-29 10:16 | MM_ITS ---
WS: [id number] BILATERAL 3D TOMOSYNTHESIS DIGITAL SCREENING MAMMOGRAPHY WITH CAD CLINICAL INFORMATION: SCREENING HISTORY: Screening mammogram. No current complaints. COMPARISON: 2023 TECHNIQUE: Bilateral CC and MLO views. FINDINGS: Scattered fibroglandular densities bilaterally. No suspicious focal mass, asymmetry, calcifications, or architectural distortion. No evidence of malignancy. Incidental stable intramammary lymph nodes. Vascular calcifications. MM/MM scr tomosynthesis [id number] IMPRESSION: DENSITY: There are scattered areas of fibroglandular density. BI-RADS: 2 - Benign. FOLLOW UP: 1 Year Follow-up Recommend return to annual screening mammography.
== END 2024-09-29 09:56 | disposition home or self-care (01) ==
PROVIDERS: PCP Nurse Practitioner; Visit Provider Family Medicine
DX: Z12.31 Encounter for screening mammogram for malignant neoplasm of breast (principal); R92.323 Mammographic fibroglandular density, bilateral breasts; R92.1 Mammographic calcification found on diagnostic imaging of breast; R59.0 Localized enlarged lymph nodes
CPT/HCPCS: 77063; 77067

== ENCOUNTER 2024-12-24 12:44 | Outpatient (CLI) | payer MEDICARE, SELFPAY | END 2024-12-24 12:45 | disposition home or self-care (01) | LOC: SLEEP 12:47 | PROVIDERS: PCP Nurse Practitioner; Referring Provider Family Medicine; Visit Provider Internal Medicine Pulmonary Disease | DX: G47.33 Obstructive sleep apnea (adult) (pediatric) (principal); R09.02 Hypoxemia | CPT/HCPCS: G0399 ==